=== PATIENT | male | born 1995 | race Caucasian/White ===

== ENCOUNTER 2018-06-17 17:31 | Observation (INO) | payer MEDICAID, OTHER ==
[~2018-06-17] VITALS: Ht 185.4 cm; Wt 102.5 kg
[~2018-06-17 17:31] MED LIST: SULF1TAB38 PO
[2018-06-17 18:42] LABS: BASOPHILS # (AUTO) 0.1 10^3/uL (0.0-0.1); BASOPHILS % (AUTO) 1 % (0-10); EOSINOPHILS # (AUTO) 0.1 10^3/uL (0.0-0.3); EOSINOPHILS % (AUTO) 1 % (0-10); HEMATOCRIT 46 % (40-54); HEMOGLOBIN 15.2 G/DL (13.3-17.7); LYMPHOCYTES # (AUTO) 1.9 X 10^3 (1.0-4.0); LYMPHOCYTES % (AUTO) 18 % (12-44); MEAN CORPUSCULAR HEMOGLOBIN 25 PG (25-34); MEAN CORPUSCULAR HGB CONC 33 G/DL (32-36); MEAN CORPUSCULAR VOLUME 77 FL (80-99); MONOCYTES # (AUTO) 0.7 X 10^3 (0.0-1.0); MONOCYTES % (AUTO) 7 % (0-12); NEUTROPHILS # (AUTO) 7.9 X 10^3 (1.8-7.8); NEUTROPHILS % (AUTO) 73 % (42-75); PLATELET COUNT 346 10^3/uL (130-400); RED CELL DISTRIBUTION WIDTH 14.3 % (10.0-14.5); WHITE BLOOD COUNT 10.8 10^3/uL (4.3-11.0)
[2018-06-17 18:56] LABS: ALANINE AMINOTRANSFERASE 21 U/L (0-55); ALBUMIN 4.2 GM/DL (3.2-4.5); ALKALINE PHOSPHATASE 57 U/L (40-136); BILIRUBIN,TOTAL 0.2 MG/DL (0.1-1.0); BUN/CREATININE RATIO 18; CALCIUM 8.8 MG/DL (8.5-10.1); CARBON DIOXIDE 24 MMOL/L (21-32); CHLORIDE 106 MMOL/L (98-107); CREATININE SERUM 0.95 MG/DL (0.60-1.30); GFR ESTIMATED > 60; GLUCOSE 121 MG/DL (70-105); POTASSIUM 4.3 MMOL/L (3.6-5.0); SODIUM 140 MMOL/L (135-145); TOTAL PROTEIN 6.9 GM/DL (6.4-8.2)
[2018-06-17 19:01] LABS: BILIRUBIN,URINE NEGATIVE (NEGATIVE); CLARITY,URINE CLEAR; COLOR,URINE YELLOW; GLUCOSE, URINE (UA) NEGATIVE (NEGATIVE); KETONES,URINE NEGATIVE (NEGATIVE); LEUKOCYTE ESTERASE ,URINE NEGATIVE (NEGATIVE); NITRITE,URINE NEGATIVE (NEGATIVE); PH,URINE 7 (5-9); PROTEIN,URINE NEGATIVE (NEGATIVE); UROBILINOGEN,URINE 1 MG/DL (NORMAL)
[2018-06-17 19:08] LABS: SQUAMOUS EPITHELIAL CELL,UR RARE /HPF
[2018-06-17 19:20] LABS: AMPHETAMINE SCREEN, URINE NEGATIVE (NEGATIVE); BARBITURATE SCREEN URINE NEGATIVE (NEGATIVE); BENZODIAZEPINES SCREEN URINE NEGATIVE (NEGATIVE); CANNABINOID SCREEN, URINE POSITIVE (NEGATIVE); COCAINE SCREEN URINE NEGATIVE (NEGATIVE); METHADONE STAT NEGATIVE (NEGATIVE); METHAMPHETAMINE SCREEN URINE S POSITIVE (NEGATIVE); OPIATE SCREEN URINE NEGATIVE (NEGATIVE); OXYCODONE STAT NEGATIVE (NEGATIVE); PROPOXYPHENE STAT NEGATIVE (NEGATIVE); TRICYCLIC ANTIDEPRESSANTS SCRE NEGATIVE (NEGATIVE)
--- NOTE | 2018-06-17 19:41 | ED Psychosocial ---
General Chief Complaint: Psych/Social Disorder Stated Complaint: MENTAL EVAL REQUEST Nursing Triage Note: PT AMBULATES TO ROOM 8 UNDER SUCIDE PRECAUTIONS, PT STATES TO STAFF TRIED TO HANG HIMSELF TODAY PAIR OF PANTS. NO MARKINGS NOTED ON NECK. PT CLOTHING REMOVED. PT HAS SUPERFICIAL CUT FULLER NOTED ON ARMS BILATERALLY PT STATES GOVT MAKING HIM DO THESE THINGS, PT IS VERY PARANOID. FRIEND W PT STATES SMOKES POT FREQUENTLY, BUT THINKS MAY HAVE DID METH, WHEN PT ASKED STATES DID IT A FEW DAYS AGO. PT HAS HX OF DEPRESSION. PT LOOKING AROUND ROOM, ACTING LIKE OTHER PEOPLE IN ROOM. FRIEND STATES ACTING LIKE THIS SINCE THURSDAY Source: patient, family, old records Exam Limitations: no limitations (VALERIE POWELL MD) History of Present Illness Date Seen by Provider: Jun 17, 2018 Time Seen by Provider: 18:10 Initial Comments This young man presents to emergency room with his mother and a possible suicide attempt earlier today. Reportedly the patient tried to hang himself with a pair of pants. Patient will not directly answer questions regarding this incident but his mother and another female tip out worker in the room states this to have happened. Patient reportedly took methamphetamines and trazodone on Thursday or Thursday, June 13 or . Patient will not directly answer questions about his substance use. He does appear to be psychotic. He has complained about government officials trying to tap into his phone system. Family believes symptoms started on Thursday. Patient does have a history of depression and ADHD. He had admission in 2016 for overdose. He previously was seeing [facility] at [facility] and had previously been taking Seroquel. [place] [facility] Patient also has superficial abrasions/lacerations on his upper extremities bilaterally. Patient avoids eye contact and does not want to engage with answering questions directly. He talks to himself at times and it does appear acutely psychotic. Patient is alert and oriented. There are no visible fuller on the patient's neck. When asked about how she is feeling and about his thoughts, he only states "I just want it to stop". He will not answer any other questions directly. (VALERIE POWELL MD) Allergies and Home Medications Allergies Coded Allergies: No Known Drug Allergies (Unverified , 06/18/18) Home Medications No Active Prescriptions or Reported Meds Patient Home Medication List Home Medication List Reviewed: Yes (VALERIE POWELL MD) Constitutional: no symptoms reported EENTM: no symptoms reported Respiratory: no symptoms reported Cardiovascular: no symptoms reported Gastrointestinal: no symptoms reported Genitourinary: no symptoms reported Musculoskeletal: no symptoms reported Skin: no symptoms reported Psychiatric/Neurological: See HPI (VALERIE POWELL MD) Past Jqlgtxi-Bhzpnf-Eezkrh Hx Past Med/Social Hx: Reviewed and Corrections made (VALERIE POWELL MD) Patient Social History Alcohol Use: Occasionally Uses Recreational Drug Use: Yes Drug of Choice: marijuana and methamphetamine Smoking Status: Never a Smoker Recent Foreign Travel: No Contact w/Someone Who Travel: No Recent Infectious Disease Expo: No Recent Hopitalizations: No Physical Abuse: No Sexual Abuse: No (VALERIE POWELL MD) Immunizations Up To Date Tetanus Booster (TDap): Less than 5yrs PED Vaccines UTD: Yes (VALERIE POWELL MD) Seasonal Allergies Seasonal Allergies: No (VALERIE POWELL MD) Past Medical History Surgeries: No Respiratory: No Cardiac: No Neurological: No Reproductive Disorders: No Gastrointestinal: No Musculoskeletal: No Endocrine: No HEENT: No Cancer: No Psychosocial: Yes ADD/ADHD, Depression Nursing Suicide Risk Score: 3 Nursing Suicide Risk Notes: PT TO ROOM 8. Integumentary: No Blood Disorders: No Adverse Reaction/Blood Tranf: No (VALERIE POWELL MD) Family Medical History Psychosocial problem 19 MOTHER Psychiatric Problems (bipolar disorder) (VALERIE POWELL MD) Physical Exam Vital Signs - First Documented 06/17/18 06/18/18 17:45 08:20 Temp 98.3 Pulse 123 Resp 18 B/P (MAP) 130/95 (107) Pulse Ox 97 O2 Delivery Room Air (ALONA RICHMOND) Capillary Refill : Less Than 3 Seconds (VALERIE POWELL MD) Height, Weight, BMI Height: 6'1.00" Weight: 230lbs. 0.0oz. [id number]; 32.8 BMI Method:Stated General Appearance: WD/WN, no apparent distress HEENT: PERRL/EOMI, normal ENT inspection, pharynx normal Neck: normal inspection Respiratory: lungs clear, normal breath sounds, no respiratory distress, no accessory muscle use Cardiovascular: regular rate, rhythm, no edema, no murmur Gastrointestinal: normal bowel sounds, non tender, soft Extremities: normal inspection, no pedal edema Neurologic/Psychiatric: train announcer II-XII nml as tested, no motor/sensory deficits, alert, oriented x 3, other (appears acutely psychotic) Appearance/Memory: disheveled Behavior/Eye Contact: avoids eye contact, refused to answer, threatening eye contact, other (speech sometimes pressured) Thoughts/Hallucinations: paranoid, other (possible hallucinations although patient is not directly admit to the) Skin: normal color, warm/dry (VALERIE POWELL MD) Progress/Results/Core Measures Results/Orders Lab Results Laboratory Tests Test 06/17/18 18:30 06/17/18 18:47 Range/Units White Blood Count 10.8 4.3-11.0 10^3/uL Red Blood Count 6.00 H 4.35-5.85 10^6/uL Hemoglobin 15.2 13.3-17.7 G/DL Hematocrit 46 40-54 % Mean Corpuscular Volume 77 L 80-99 FL Mean Corpuscular Hemoglobin 25 25-34 PG Mean Corpuscular Hemoglobin Concent 33 32-36 G/DL Red Cell Distribution Width 14.3 10.0-14.5 % Platelet Count 346 130-400 10^3/uL Mean Platelet Volume 10.0 7.4-10.4 FL Neutrophils (%) (Auto) 73 42-75 % Lymphocytes (%) (Auto) 18 12-44 % Monocytes (%) (Auto) 7 0-12 % Eosinophils (%) (Auto) 1 0-10 % Basophils (%) (Auto) 1 0-10 % Neutrophils # (Auto) 7.9 H 1.8-7.8 X 10^3 Lymphocytes # (Auto) 1.9 1.0-4.0 X 10^3 Monocytes # (Auto) 0.7 0.0-1.0 X 10^3 Eosinophils # (Auto) 0.1 0.0-0.3 10^3/uL Basophils # (Auto) 0.1 0.0-0.1 10^3/uL Sodium Level 140 135-145 MMOL/L Potassium Level 4.3 3.6-5.0 MMOL/L Chloride Level 106 98-107 MMOL/L Carbon Dioxide Level 24 21-32 MMOL/L Anion Gap 10 5-14 MMOL/L Blood Urea Nitrogen 17 7-18 MG/DL Creatinine 0.95 0.60-1.30 MG/DL Estimat Glomerular Filtration Rate > 60 BUN/Creatinine Ratio 18 Glucose Level 121 H 70-105 MG/DL Calcium Level 8.8 8.5-10.1 MG/DL Corrected Calcium 8.6 8.5-10.1 MG/DL Total Bilirubin 0.2 0.1-1.0 MG/DL Aspartate Amino Transf (AST/SGOT) 12 5-34 U/L Alanine Aminotransferase (ALT/SGPT) 21 0-55 U/L Alkaline Phosphatase 57 40-136 U/L Total Protein 6.9 6.4-8.2 GM/DL Albumin 4.2 3.2-4.5 GM/DL Thyroid Stimulating Hormone (TSH) 0.74 0.35-4.94 UIU/ML Serum Alcohol < 10 <10 MG/DL Urine Color YELLOW Urine Clarity CLEAR Urine pH 7 5-9 Urine Specific [place] 1.010 L 1.016-1.022 Urine Protein NEGATIVE NEGATIVE Urine Glucose (UA) NEGATIVE NEGATIVE Urine Ketones NEGATIVE NEGATIVE Urine Nitrite NEGATIVE NEGATIVE Urine Bilirubin NEGATIVE NEGATIVE Urine Urobilinogen 1 NORMAL MG/DL Urine Leukocyte Esterase NEGATIVE NEGATIVE Urine RBC (Auto) NEGATIVE NEGATIVE Urine RBC NONE /HPF Urine WBC NONE /HPF Urine Squamous Epithelial Cells RARE /HPF Urine Crystals NONE /LPF Urine Bacteria NONE /HPF Urine Casts NONE /LPF Urine Mucus NEGATIVE /LPF Urine Culture Indicated NO Urine Opiates Screen NEGATIVE NEGATIVE Urine Oxycodone Screen NEGATIVE NEGATIVE Urine Methadone Screen NEGATIVE NEGATIVE Urine Propoxyphene Screen NEGATIVE NEGATIVE Urine Barbiturates Screen NEGATIVE NEGATIVE Ur Tricyclic Antidepressants Screen NEGATIVE NEGATIVE Urine Phencyclidine Screen NEGATIVE NEGATIVE Urine Amphetamines Screen NEGATIVE NEGATIVE Urine Methamphetamines Screen POSITIVE H NEGATIVE Urine Benzodiazepines Screen NEGATIVE NEGATIVE Urine Cocaine Screen NEGATIVE NEGATIVE Urine Cannabinoids Screen POSITIVE H NEGATIVE (ALONA RICHMOND) Medications Given in ED (ALONA RICHMOND) Vital Signs/I&O 06/18/18 06/18/18 06/18/18 07:55 08:20 11:20 Temp 98.3 98.1 99.0 Pulse 123 94 89 Resp 18 22 20 B/P (MAP) 130/95 (107) 144/98 (113) 129/57 (81) Pulse Ox 97 99 96 O2 Delivery Room Air Room Air (ALONA RICHMOND) Blood Pressure Mean: 107 Progress Progress Note #1: Time: 20:36 Progress Note Patient was evaluated by the screener from [facility]. He is more open now been discussion about admission and states he is willing to be admitted. The screener and recommendation is that he be admitted for further psychiatric workup. It is still unclear if patient was using methamphetamines and marijuana because he was suicidal or if he became suicidal after the substance abuse. From the history he and the family provided, it sounds like he developed suicidal ideation last week and then started using marijuana and methamphetamines. Progress Note #2: Time: 21:46 Progress Note Patient did verify with me that he is willing and ready to accept psychiatric admission. Admission will be considered voluntary. He prefers to stay local if possible. Staff is presently working on placement. Tetanus booster was administered because of the abrasions/lacerations on the arms. Progress Note #3: Time: 22:34 Progress Note Patient had a visitor that reminded him of a friend that is . Patient became very agitated and paranoid as a result. He believes "they" are sending him of the lungs and to manipulate his mind. He is agreeable to medication by injection to help him calm down. Geodon 10 mg and Ativan 0.5 mg were ordered to be given by IM route. All visitors except for mother were asked to leave. Progress Note #4: Time: 23:08 Progress Note So far admission has been declined by [facility] in [place], [facility] [place], [facility], [facility], [facility] in [place], and [place]. [place] is admitting [place] admission for further review in the morning and will call back in the morning hours. Progress Note #5: Time: 23:22 Progress Note [facility] does not have any beds at this time but may have some discharges in the morning opening up a bed. Information has been faxed. [facility] stated they will contact us after patient's chart is reviewed. The chart is being faxed to them as well. Patient has been calm so far after receiving Geodon and Ativan. Progress Note #6: Time: 00:33 Progress Note Patient is sleeping comfortably at this time. Progress Note #7: Time: 05:37 Progress Note Patient continues to sleep comfortably. In addition to the facilities contacted above, [facility], [facility], and [facility] were contacted. None of these facilities had available beds at this time. [facility] in [place] requested information be faxed. We're still awaiting response from [facility]. (VALERIE POWELL MD) Progress Note : Time: 06:12 Progress Note Assume care of the patient at shift change. Reviewed historical notes and examination as well as examine the patient. Patient is still rather drowsy from the recent Geodon and Ativan shot but I agree with the history and examination findings as per in the chart by Dr. Feng. Patient still has suicidal ideation despite being drowsy. Psychotic features are under much better control however as he has been sleeping apparently for the past couple hours. There are multiple places that's include [place] and [facility] in [facility] that would be willing to consider the patient for admission after discharges this morning. A reasonable plan of care would be to put him on a short observation stay since his suicidal ideations with recent attempt and methamphetamine psychosis have not changed. (ALONA RICHMOND) Departure Communication (Admissions) Time/Spoke to Admitting Phy: 06:[address] Fajardo and she agrees with placing the patient on observation for social work assistant to look for inpatient psychiatric placement. Ideally she thinks that being in the ICU would be better than having video monitoring which he may not deal well with. She is willing to do the floor as well if the ICU is unavailable. (ALONA RICHMOND) Impression Primary Impression: Attempted suicide Additional Impressions: Polysubstance abuse Paranoia Disposition: ADMITTED INPATIENT Condition: Stable Admissions Decision to Admit Reason: Admit from ER (General) Decision to Admit/Date: Jun 18, 2018 Time/Decision to Admit Time: 06:50 (ALONA RICHMOND) Departure-Patient Inst. Referrals: [facility] (PCP/Family) Primary Care Physician Scripts No Active Prescriptions or Reported Meds Copy Copies To 1: JASON DIEGO JOSHUA T MD Jun 17, 2018 19:41 ALONA RICHMOND Jun 18, 2018 06:16
[2018-06-17] MEDS ORDERED: TETANUS,DIPTH,PERTUSS P/F (BOOSTRIX) 0.5 ML VIAL IM ONE (21:00)
[2018-06-17] MEDS ORDERED: WATER (STERILE) FOR INJECTION 20 ML ONE (22:40)
[2018-06-17] MEDS ORDERED: ZIPRASIDONE 20 MG INJ (GEODON) VIAL IM ONE (22:45)
[2018-06-17] MEDS ORDERED: LORazepam INJ 2 MG/ML (ATIVAN) VIAL IM ONE (22:45)
[2018-06-18 08:20] VITALS: BP 144/98
--- NOTE | 2018-06-18 08:48 | History & Physicial ([facility]) ---
HPI History of Present Illness: 22 year old male who presented to the ED yesterday with significant other and mother with paranoid delusions, suicidal thoughts, and meth abuse. He was kept in the ED overnight, and they were unable to obtain placement. The patient remained calm, but frequently expressed paranoia that "the government" was watching him and/or trying to get to him. He has no history of drug abuse according to his family/friends that were present in the ED. After being unable to secure placement overnight, the patient was moved to the floor with a telesitter while rn social work continued to work on obtaining inpatient placement. The patient is williing to go voluntarily. It is unclear as to whether the patient was using substances due to his paranoia and inability to control his thoughts - which is what his family/significant other reports, or if the pt's substance abuse has contributed to his paranoia and racing thoughts. Per review of clinic records, patient has a history of methamphetamine abuse, as well as THC abuse. Patient's clinic chart reveals that he does not have a PCP, but has been seen by behavioral health at [facility] a few times, in February and March of 2018. Review of those records indicate that pt has history of methamphetamine use since Nov 2017, daily THC use to calm himself down, previous history of abusing pills, and a suicide attempt in 2016 by overdose, after which he was hospitalized at [place] for a short time. Source: patient, family, RN/MD, RN notes reviewed, old records Exam Limitations: no limitations Date seen by provider: Jun 18, 2018 Time Seen by Provider: 13:40 Attending Physician Adela Fajadro DO [facility] Consult Date of Admission Jun 18, 2018 at 06:45 Home Medications Home Medications Reviewed patient Home Medication Reconciliation performed by pharmacy medication reconciliations surgery technician and/or nursing. Patients Allergies have been reviewed. 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[employer], overnight shift) Alcohol Use: Occasionally Uses Recreational Drug Use: Yes Drug of Choice: marijuana and methamphetamine Smoking Status: Current Everyday Smoker (smokes THC daily) 2nd Hand Smoke Exposure: Yes Recent Foreign Travel: No Contact w/other who traveled: No Recent Hopitalizations: No Recent Infectious Disease Expo: No Immunizations Up To Date Tetanus Booster (TDap): Less than 5yrs Past Medical History PMHx: Depression Anxiety ADHD - took medication in middle school per pt report Polysubstance Abuse - Meth, THC, pills in the past Suicide Attempt by overdose - 2016 with inpt stay at [place] Family Medical History Significant Family History: Psychiatric Problems (bipolar disorder) Family History: Psychosocial problem 19 MOTHER Review of Systems ([facility]) Constitutional: no symptoms reported, see HPI EENTM: no symptoms reported Respiratory: no symptoms reported Cardiovascular: no symptoms reported Gastrointestinal: no symptoms reported Genitourinary: no symptoms reported Musculoskeletal: no symptoms reported Skin: no symptoms reported Psychiatric/Neurological: See HPI, Anxiety, Depressed, Emotional Problems, Other (Paranoia) Reviewed Test Results Reviewed Test Results Lab Laboratory Tests Test 06/17/18 18:30 06/17/18 18:47 Range/Units White Blood Count 10.8 4.3-11.0 10^3/uL Red Blood Count 6.00 H 4.35-5.85 10^6/uL Hemoglobin 15.2 13.3-17.7 G/DL Hematocrit 46 40-54 % Mean Corpuscular Volume 77 L 80-99 FL Mean Corpuscular Hemoglobin 25 25-34 PG Mean Corpuscular Hemoglobin Concent 33 32-36 G/DL Red Cell Distribution Width 14.3 10.0-14.5 % Platelet Count 346 130-400 10^3/uL Mean Platelet Volume 10.0 7.4-10.4 FL Neutrophils (%) (Auto) 73 42-75 % Lymphocytes (%) (Auto) 18 12-44 % Monocytes (%) (Auto) 7 0-12 % Eosinophils (%) (Auto) 1 0-10 % Basophils (%) (Auto) 1 0-10 % Neutrophils # (Auto) 7.9 H 1.8-7.8 X 10^3 Lymphocytes # (Auto) 1.9 1.0-4.0 X 10^3 Monocytes # (Auto) 0.7 0.0-1.0 X 10^3 Eosinophils # (Auto) 0.1 0.0-0.3 10^3/uL Basophils # (Auto) 0.1 0.0-0.1 10^3/uL Sodium Level 140 135-145 MMOL/L Potassium Level 4.3 3.6-5.0 MMOL/L Chloride Level 106 98-107 MMOL/L Carbon Dioxide Level 24 21-32 MMOL/L Anion Gap 10 5-14 MMOL/L Blood Urea Nitrogen 17 7-18 MG/DL Creatinine 0.95 0.60-1.30 MG/DL Estimat Glomerular Filtration Rate > 60 BUN/Creatinine Ratio 18 Glucose Level 121 H 70-105 MG/DL Calcium Level 8.8 8.5-10.1 MG/DL Corrected Calcium 8.6 8.5-10.1 MG/DL Total Bilirubin 0.2 0.1-1.0 MG/DL Aspartate Amino Transf (AST/SGOT) 12 5-34 U/L Alanine Aminotransferase (ALT/SGPT) 21 0-55 U/L Alkaline Phosphatase 57 40-136 U/L Total Protein 6.9 6.4-8.2 GM/DL Albumin 4.2 3.2-4.5 GM/DL Thyroid Stimulating Hormone (TSH) 0.74 0.35-4.94 UIU/ML Serum Alcohol < 10 <10 MG/DL Urine Color YELLOW Urine Clarity CLEAR Urine pH 7 5-9 Urine Specific [place] 1.010 L 1.016-1.022 Urine Protein NEGATIVE NEGATIVE Urine Glucose (UA) NEGATIVE NEGATIVE Urine Ketones NEGATIVE NEGATIVE Urine Nitrite NEGATIVE NEGATIVE Urine Bilirubin NEGATIVE NEGATIVE Urine Urobilinogen 1 NORMAL MG/DL Urine Leukocyte Esterase NEGATIVE NEGATIVE Urine RBC (Auto) NEGATIVE NEGATIVE Urine RBC NONE /HPF Urine WBC NONE /HPF Urine Squamous Epithelial Cells RARE /HPF Urine Crystals NONE /LPF Urine Bacteria NONE /HPF Urine Casts NONE /LPF Urine Mucus NEGATIVE /LPF Urine Culture Indicated NO Urine Opiates Screen NEGATIVE NEGATIVE Urine Oxycodone Screen NEGATIVE NEGATIVE Urine Methadone Screen NEGATIVE NEGATIVE Urine Propoxyphene Screen NEGATIVE NEGATIVE Urine Barbiturates Screen NEGATIVE NEGATIVE Ur Tricyclic Antidepressants Screen NEGATIVE NEGATIVE Urine Phencyclidine Screen NEGATIVE NEGATIVE Urine Amphetamines Screen NEGATIVE NEGATIVE Urine Methamphetamines Screen POSITIVE H NEGATIVE Urine Benzodiazepines Screen NEGATIVE NEGATIVE Urine Cocaine Screen NEGATIVE NEGATIVE Urine Cannabinoids Screen POSITIVE H NEGATIVE Physical Exam-([facility]) Physical Exam Vital Signs Capillary Refill : Less Than 3 Seconds General Appearance: WD/WN, other (paranoid) Eyes: Bilateral Eye Normal Inspection, Bilateral Eye EOMI HEENT: normal ENT inspection Neck: non-tender, full range of motion, supple, normal inspection Respiratory: chest non-tender, lungs clear, normal breath sounds, no respiratory distress, no accessory muscle use Cardiovascular: regular rate, rhythm, no edema, no gallop, no murmur Gastrointestinal: normal bowel sounds, non tender, soft, no organomegaly, no pulsatile mass Back: normal inspection, no CVA tenderness, no vertebral tenderness Extremities: normal range of motion, non-tender, normal inspection, no pedal edema, no calf tenderness, normal capillary refill Neurologic/Psychiatric: hand candy cutter II-XII nml as tested, no motor/sensory deficits, alert, oriented x 3, other (paranoid, anxious appearing) Skin: normal color, warm/dry Assessment/Plan Assessment/Plan Admission Dx Paranoia Suicidal Ideation Polysubstance Abuse Depression Anxiety Admission Status: Observation Assessment & Plan Paranoia Suicidal Ideation Polysubstance Abuse Depression Anxiety Patient calm and cooperative, but obviously paranoid at the time of exam. He is anxious and reports that his thoughts are "racing" but he denies auditory or visual hallucinations. Patient has taina accepted for inpatient treatment at [facility]. He is medically stable From conversing with the patient, it is immediately clear that his meth use prior to admission was not a single event, as the review of clinic records reviewed. Patient spoke about various different things to think about when purchasing meth for use, who you get it from, what it is mixed with, what kind of quality it is, etc. Patient is medically stable and has been cooperative throughout his stay; he continues to confirm he has suicidal ideation and desires inpatient admission. He will be discharged from this facility and transported by private vehicle to [facility] by his mother and significant other. We will give him 2 mg ativan PO and 25 mg Seroquel PO prior to discharge to help him relax, as he is feeling anxious about the car ride. He has taken seroquel in the past and reports that he did okay on it, but was taking 100 mg and it made him very tired. PLAN: DISCHARGE, transport by private vehicle to [facility] CONDITION: STABLE Copy Copies To 1: [facility]ADELA DUPONT DO Jun 18, 2018 08:48
[2018-06-18] MEDS ORDERED: ZIPRASIDONE 20 MG INJ (GEODON) VIAL IM PRN (09:30)
[2018-06-18] MEDS ORDERED: LORazepam INJ 2 MG/ML (ATIVAN) VIAL IVP PRN (09:30)
[2018-06-18 11:20] VITALS: BP 129/57
[2018-06-18] MEDS ORDERED: QUEtiapine 25 MG (SEROquel) TAB IMMEDIATE RELEASE PO NR (14:15)
[2018-06-18] MEDS ORDERED: LORazepam 1 MG (ATIVAN) TAB PO NR (14:15)
--- NOTE | 2018-06-18 14:17 | Discharge Summary ---
Diagnosis/Chief Complaint Date of Admission Jun 18, 2018 at 06:45 Date of Discharge 06/18/18 Admission Diagnosis Admission Diagnosis Paranoia Suicidal Ideation Polysubstance Abuse Depression Anxiety Discharge Diagnosis Paranoia Suicidal Ideation Polysubstance Abuse Depression Anxiety Patient calm and cooperative, but obviously paranoid at the time of exam. He is anxious and reports that his thoughts are "racing" but he denies auditory or visual hallucinations. Patient has taina accepted for inpatient treatment at [facility]. He is medically stable From conversing with the patient, it is immediately clear that his meth use prior to admission was not a single event, as the review of clinic records reviewed. Patient spoke about various different things to think about when purchasing meth for use, who you get it from, what it is mixed with, what kind of quality it is, etc. Patient is medically stable and has been cooperative throughout his stay; he continues to confirm he has suicidal ideation and desires inpatient admission. He will be discharged from this facility and transported by private vehicle to [facility] by his mother and significant other. We will give him 2 mg ativan PO and 25 mg Seroquel PO prior to discharge to help him relax, as he is feeling anxious about the car ride. He has taken seroquel in the past and reports that he did okay on it, but was taking 100 mg and it made him very tired. PLAN: DISCHARGE, transport by private vehicle to [facility] CONDITION: STABLE Chief Complaint/HPI Chief Complaint/HPI 22 year old male who presented to the ED yesterday with significant other and mother with paranoid delusions, suicidal thoughts, and meth abuse. He was kept in the ED overnight, and they were unable to obtain placement. The patient remained calm, but frequently expressed paranoia that "the government" was watching him and/or trying to get to him. He has no history of drug abuse according to his family/friends that were present in the ED. After being unable to secure placement overnight, the patient was moved to the floor with a telesitter while geriatric social worker continued to work on obtaining inpatient placement. The patient is williing to go voluntarily. It is unclear as to whether the patient was using substances due to his paranoia and inability to control his thoughts - which is what his family/significant other reports, or if the pt's substance abuse has contributed to his paranoia and racing thoughts. Per review of clinic records, patient has a history of methamphetamine abuse, as well as THC abuse. Patient's clinic chart reveals that he does not have a PCP, but has been seen by behavioral health at [facility] a few times, in February and March of 2018. Review of those records indicate that pt has history of methamphetamine use since Nov 2017, daily THC use to calm himself down, previous history of abusing pills, and a suicide attempt in 2016 by overdose, after which he was hospitalized at [facility] for a short time. Discharge Summary-OBS Procedures None. Consultations Discharge Physical Examination Allergies: Coded Allergies: No Known Drug Allergies (Unverified , 06/18/18) Vitals & I&Os Vital Sign - Last 12Hours Date Time Temp Pulse Resp B/P (MAP) Pulse Ox O2 Delivery O2 Flow Rate FiO2 06/18/18 11:20 99.0 89 20 129/57 (81) 96 Room Air Hospital Course see final discharge diagnosis Labs Laboratory Tests 06/17/18 18:30: White Blood Count 10.8, Red Blood Count 6.00H, Hemoglobin 15.2, Hematocrit 46, Mean Corpuscular Volume 77L, Mean Corpuscular Hemoglobin 25, Mean Corpuscular Hemoglobin Concent 33, Red Cell Distribution Width 14.3, Platelet Count 346, Mean Platelet Volume 10.0, Neutrophils (%) (Auto) 73, Lymphocytes (%) (Auto) 18 , Monocytes (%) (Auto) 7, Eosinophils (%) (Auto) 1, Basophils (%) (Auto) 1, Neutrophils # (Auto) 7.9H, Lymphocytes # (Auto) 1.9, Monocytes # (Auto) 0.7, Eosinophils # (Auto) 0.1, Basophils # (Auto) 0.1, Sodium Level 140, Potassium Level 4.3, Chloride Level 106, Carbon Dioxide Level 24, Anion Gap 10, Blood Urea Nitrogen 17, Creatinine 0.95, Estimat Glomerular Filtration Rate > 60, BUN/ Creatinine Ratio 18, Glucose Level 121H, Calcium Level 8.8, Corrected Calcium 8.6, Total Bilirubin 0.2, Aspartate Amino Transf (AST/SGOT) 12, Alanine Aminotransferase (ALT/SGPT) 21, Alkaline Phosphatase 57, Total Protein 6.9, Albumin 4.2, Thyroid Stimulating Hormone (TSH) 0.74, Serum Alcohol < 10 8/9/18 18:47: Urine Color YELLOW, Urine Clarity CLEAR, Urine pH 7, Urine Specific [place] 1.010L, Urine Protein NEGATIVE, Urine Glucose (UA) NEGATIVE, Urine Ketones NEGATIVE, Urine Nitrite NEGATIVE, Urine Bilirubin NEGATIVE, Urine Urobilinogen 1 , Urine Leukocyte Esterase NEGATIVE, Urine RBC (Auto) NEGATIVE, Urine RBC NONE, Urine WBC NONE, Urine Squamous Epithelial Cells RARE, Urine Crystals NONE, Urine Bacteria NONE, Urine Casts NONE, Urine Mucus NEGATIVE, Urine Culture Indicated NO, Urine Opiates Screen NEGATIVE, Urine Oxycodone Screen NEGATIVE, Urine Methadone Screen NEGATIVE, Urine Propoxyphene Screen NEGATIVE, Urine Barbiturates Screen NEGATIVE, Ur Tricyclic Antidepressants Screen NEGATIVE, Urine Phencyclidine Screen NEGATIVE, Urine Amphetamines Screen NEGATIVE, Urine Methamphetamines Screen POSITIVEH, Urine Benzodiazepines Screen NEGATIVE, Urine Cocaine Screen NEGATIVE, Urine Cannabinoids Screen POSITIVEH Discharge Condition at discharge medically stable, transfer by private vehicle to [facility] for inpatient psychiatric treatment Instructions to patient/family Please see electronic discharge instructions given to patient. Discharge Medications Reviewed and agree with Discharge Medication list on patient's Discharge Instruction sheet Clinical Quality Measures DVT/VTE Risk/Contraindication: Risk Factor Score Per Nursin RFS Level Per Nursing on Admit: 1=Low/No VTE PPX Copy Copies To 1: [facility] DO Jun 18, 2018 14:17
== END 2018-06-18 14:20 ==
LOC: EDUNIT# 17:31 → ER 17:32 → 4TH 17:33 → UNDOADMOB 06-18 06:45 → 4TH 06-18 06:45 → UNDODISOB 06-18 15:20
PROVIDERS: ADMIT Family Medicine; ATTEND Family Medicine
DX: F22 Delusional disorders (principal); R45.851 Suicidal ideations; F15.10 Other stimulant abuse, uncomplicated; F12.90 Cannabis use, unspecified, uncomplicated; F32.9 Major depressive disorder, single episode, unspecified; F41.9 Anxiety disorder, unspecified
CPT/HCPCS: 36415; 80053; 80306; 80320; 81000; 84443; 85025; 90471; 90715; 96372; 99211; G0378

== ENCOUNTER 2019-08-02 12:30 | Emergency (ER) | payer OTHER ==
[~2019-08-02] VITALS: Ht 187 cm; Wt 127.0 kg
[2019-08-02] MEDS ORDERED: ZIPRASIDONE 20 MG INJ (GEODON) VIAL IM ONE ×2 (12:34→12:45)
[2019-08-02] MEDS ORDERED: WATER (STERILE) FOR INJECTION 10 ML ONE (12:35)
--- NOTE | 2019-08-02 12:42 | NUR ---
PT STATES HE HAS NOT INTENTIONS OF HARMING HIMSELF AT THIS TIME.
--- NOTE | 2019-08-02 12:45 | ED Psychosocial ---
General Chief Complaint: Psych/Social Disorder Stated Complaint: PSYCH EVAL Nursing Triage Note: ARRIVED VIA EMS FROM ROAD. WENT TO [facility] LOOKING FOR HELP AND LEFT AMA. FOUND WONDERING IN THE STREET. PT NOW STATES HE IS WANTING A MENTAL EVALUATION. Source: patient Exam Limitations: no limitations History of Present Illness Date Seen by Provider: Aug 02, 2019 Time Seen by Provider: 12:43 Initial Comments To ER per EMS from [facility] with reports of needing mental health help. He went there this morning voluntarily because he wanted a mental evalua tion because "nothing seems real". Denies depression or anxiety, use methamphetamine last week, states it was a "bad batch". Denies any diagnosed history of mental illnesses, takes no medication. While at [facility] he ran out of the building and seemed to be agitated, police were called, 911 was called and EMS transported him here. No homicidal or suicidal ideations. States he believes we're watching him thru the TV. Timing/Duration: constant Severity: moderate Associated Symptoms: impaired concentration Allergies and Home Medications Allergies Coded Allergies: No Known Drug Allergies (Unverified , 06/18/18) Home Medications Olanzapine 10 Mg Tab.rapdis, 10 MG PO DAILY Prescribed by: ASHLYN WINN on 08/02/19 1442 Patient Home Medication List Home Medication List Reviewed: Yes Review of Systems Constitutional: see HPI EENTM: see HPI Respiratory: no symptoms reported Cardiovascular: no symptoms reported Genitourinary: no symptoms reported Musculoskeletal: no symptoms reported Skin: see HPI Past Hhuaqne-Ojsuqp-Iuggac Hx Patient Social History Alcohol Use: Occasionally Uses Alcohol Beverage of Choice: Whiskey, [place], Vodka Recreational Drug Use: Yes (METH, POT) Drug of Choice: marijuana and methamphetamine Smoking Status: Current Everyday Smoker Type Used: Cigars, Cigarettes 2nd Hand Smoke Exposure: Yes Recent Foreign Travel: No Contact w/Someone Who Travel: No Recent Infectious Disease Expo: No Recent Hopitalizations: No Immunizations Up To Date Tetanus Booster (TDap): Less than 5yrs PED Vaccines UTD: Yes Seasonal Allergies Seasonal Allergies: No Past Medical History Surgeries: No Respiratory: No Cardiac: No Neurological: No Reproductive Disorders: No Genitourinary: No Gastrointestinal: No Musculoskeletal: No Endocrine: No HEENT: No Cancer: No Did You Recieve Any Treatments: No Psychosocial: Yes ADD/ADHD, Anxiety, Suicide Attempts, Bipolar, Depression Integumentary: No Blood Disorders: No Adverse Reaction/Blood Tranf: No Family Medical History Diabetes mellitus 19 FATHER Psychosocial problem 19 MOTHER (ANXIETY DEPRESSION BIPOLAR) Psychiatric Problems Physical Exam Vital Signs - First Documented 08/02/19 12:36 Temp 36.0 Pulse 73 Resp 16 Pulse Ox 98 O2 Delivery Room Air Capillary Refill : Less Than 3 Seconds Height, Weight, BMI Height: 6'1.00" Weight: 226lbs. 1.0oz. 102.395844pg; 36.00 BMI Method:Stated General Appearance: WD/WN, no apparent distress HEENT: PERRL/EOMI, normal ENT inspection Respiratory: no respiratory distress, no accessory muscle use Gastrointestinal: non tender, soft Neurologic/Psychiatric: alert, normal mood/affect, oriented x 3 Appearance/Memory: disheveled, impaired insight, impaired recent memory, impaired remote memory Behavior/Eye Contact: avoids eye contact, refused to answer Thoughts/Hallucinations: no apparent hallucination, paranoid Skin: normal color, warm/dry Progress/Results/Core Measures Results/Orders Lab Results Laboratory Tests Test 08/02/19 13:10 Range/Units White Blood Count 9.2 4.3-11.0 10^3/uL Red Blood Count 6.09 H 4.35-5.85 10^6/uL Hemoglobin 14.9 13.3-17.7 G/DL Hematocrit 46 40-54 % Mean Corpuscular Volume 75 L 80-99 FL Mean Corpuscular Hemoglobin 24 L 25-34 PG Mean Corpuscular Hemoglobin Concent 33 32-36 G/DL Red Cell Distribution Width 14.5 10.0-14.5 % Platelet Count 338 130-400 10^3/uL Mean Platelet Volume 10.2 7.4-10.4 FL Neutrophils (%) (Auto) 74 42-75 % Lymphocytes (%) (Auto) 20 12-44 % Monocytes (%) (Auto) 4 0-12 % Eosinophils (%) (Auto) 1 0-10 % Basophils (%) (Auto) 0 0-10 % Neutrophils # (Auto) 6.9 1.8-7.8 X 10^3 Lymphocytes # (Auto) 1.9 1.0-4.0 X 10^3 Monocytes # (Auto) 0.4 0.0-1.0 X 10^3 Eosinophils # (Auto) 0.1 0.0-0.3 10^3/uL Basophils # (Auto) 0.0 0.0-0.1 10^3/uL Urine Color YELLOW Urine Clarity CLEAR Urine pH 6 5-9 Urine Specific [place] 1.015 L 1.016-1.022 Urine Protein NEGATIVE NEGATIVE Urine Glucose (UA) NEGATIVE NEGATIVE Urine Ketones NEGATIVE NEGATIVE Urine Nitrite NEGATIVE NEGATIVE Urine Bilirubin NEGATIVE NEGATIVE Urine Urobilinogen NORMAL NORMAL MG/DL Urine Leukocyte Esterase NEGATIVE NEGATIVE Urine RBC (Auto) NEGATIVE NEGATIVE Urine RBC NONE /HPF Urine WBC NONE /HPF Urine Squamous Epithelial Cells RARE /HPF Urine Crystals NONE /LPF Urine Bacteria NEGATIVE /HPF Urine Casts NONE /LPF Urine Mucus NEGATIVE /LPF Urine Culture Indicated NO Sodium Level 141 135-145 MMOL/L Potassium Level 3.8 3.6-5.0 MMOL/L Chloride Level 107 98-107 MMOL/L Carbon Dioxide Level 26 21-32 MMOL/L Anion Gap 8 5-14 MMOL/L Blood Urea Nitrogen 6 L 7-18 MG/DL Creatinine 0.73 0.60-1.30 MG/DL Estimat Glomerular Filtration Rate > 60 BUN/Creatinine Ratio 8 Glucose Level 88 70-105 MG/DL Calcium Level 9.5 8.5-10.1 MG/DL Corrected Calcium 9.2 8.5-10.1 MG/DL Total Bilirubin 0.4 0.1-1.0 MG/DL Aspartate Amino Transf (AST/SGOT) 17 5-34 U/L Alanine Aminotransferase (ALT/SGPT) 35 0-55 U/L Alkaline Phosphatase 85 40-136 U/L Total Protein 7.2 6.4-8.2 GM/DL Albumin 4.4 3.2-4.5 GM/DL Urine Opiates Screen NEGATIVE NEGATIVE Urine Oxycodone Screen NEGATIVE NEGATIVE Urine Methadone Screen NEGATIVE NEGATIVE Urine Propoxyphene Screen NEGATIVE NEGATIVE Urine Barbiturates Screen NEGATIVE NEGATIVE Ur Tricyclic Antidepressants Screen NEGATIVE NEGATIVE Urine Phencyclidine Screen NEGATIVE NEGATIVE Urine Amphetamines Screen NEGATIVE NEGATIVE Urine Methamphetamines Screen NEGATIVE NEGATIVE Urine Benzodiazepines Screen NEGATIVE NEGATIVE Urine Cocaine Screen NEGATIVE NEGATIVE Urine Cannabinoids Screen NEGATIVE NEGATIVE Serum Alcohol < 10 <10 MG/DL My Orders Orders - ASHLYN WINN PAINT PROCESS ENGINEER Cbc With Automated Diff (08/02/19 12:40) Comprehensive Metabolic Panel (08/02/19 12:40) Ua Culture If Indicated (08/02/19 12:40) Ed Iv/Invasive Line Start (08/02/19 12:40) Drug Screen Stat (Urine) (08/02/19 12:40) Ziprasidone Injection (Geodon Injection) (08/02/19 12:45) Alcohol (08/02/19 14:17) Medications Given in ED Current Medications Medications Dose Ordered Sig/Unruly Route Start Time Stop Time Status Last Admin Dose Admin Ziprasidone 10 mg ONCE ONCE IM 08/02/19 12:45 08/02/19 12:46 DC 08/02/19 12:39 10 MG Vital Signs/I&O 08/02/19 12:36 Temp 36.0 Pulse 73 Resp 16 B/P (MAP) Pulse Ox 98 O2 Delivery Room Air Departure Communication (Admissions) Patient is now sleeping, arousable to verbal stimuli. Spoke with Aleksandra from [facility], doesn't feel he needs screen since he is not suicidal or homicidal. Spoke with [facility] who feels that should be admitted inpatient for medication stabilization. I called [facility] neither of which have any psychiatric beds available. He still denies suicidal or homicidal thoughts. I'll start him on an antipsychotic arrange close outpatient follow-up Impression Primary Impression: Paranoia Disposition: 01 HOME, SELF-CARE Condition: Improved Departure-Patient Inst. Decision time for Depature: 14:30 Referrals: [facility] (PCP/Family) Primary Care Physician Patient Instructions: NO INSTRUCTIONS GIVEN Scripts Olanzapine (Zyprexa Zydis) 10 Mg Tab.rapdis 10 MG PO DAILY, #14 TAB Prov: ASHLYN WINN APRN 08/02/19 ASHLYN WINN APRN Aug 02, 2019 12:45
[2019-08-02 13:19] LABS: BASOPHILS % (AUTO) 0 % (0-10); BILIRUBIN,URINE NEGATIVE (NEGATIVE); CLARITY,URINE CLEAR; COLOR,URINE YELLOW; EOSINOPHILS # (AUTO) 0.1 10^3/uL (0.0-0.3); EOSINOPHILS % (AUTO) 1 % (0-10); GLUCOSE, URINE (UA) NEGATIVE (NEGATIVE); HEMATOCRIT 46 % (40-54); HEMOGLOBIN 14.9 G/DL (13.3-17.7); KETONES,URINE NEGATIVE (NEGATIVE); LEUKOCYTE ESTERASE ,URINE NEGATIVE (NEGATIVE); LYMPHOCYTES # (AUTO) 1.9 X 10^3 (1.0-4.0); LYMPHOCYTES % (AUTO) 20 % (12-44); MEAN CORPUSCULAR HEMOGLOBIN 24 PG (25-34); MEAN CORPUSCULAR HGB CONC 33 G/DL (32-36); MEAN CORPUSCULAR VOLUME 75 FL (80-99); MEAN PLATELET VOLUME 10.2 FL (7.4-10.4); MONOCYTES # (AUTO) 0.4 X 10^3 (0.0-1.0); MONOCYTES % (AUTO) 4 % (0-12); NEUTROPHILS # (AUTO) 6.9 X 10^3 (1.8-7.8); NEUTROPHILS % (AUTO) 74 % (42-75); NITRITE,URINE NEGATIVE (NEGATIVE); PH,URINE 6 (5-9); PLATELET COUNT 338 10^3/uL (130-400); PROTEIN,URINE NEGATIVE (NEGATIVE); RED CELL DISTRIBUTION WIDTH 14.5 % (10.0-14.5); UROBILINOGEN,URINE NORMAL (NORMAL); WHITE BLOOD COUNT 9.2 10^3/uL (4.3-11.0)
[2019-08-02 13:27] LABS: BACTERIA,URINE NEGATIVE /HPF; SQUAMOUS EPITHELIAL CELL,UR RARE /HPF
[2019-08-02 13:34] LABS: AMPHETAMINE SCREEN, URINE NEGATIVE (NEGATIVE); BARBITURATE SCREEN URINE NEGATIVE (NEGATIVE); BENZODIAZEPINES SCREEN URINE NEGATIVE (NEGATIVE); CANNABINOID SCREEN, URINE NEGATIVE (NEGATIVE); COCAINE SCREEN URINE NEGATIVE (NEGATIVE); METHADONE STAT NEGATIVE (NEGATIVE); METHAMPHETAMINE SCREEN URINE S NEGATIVE (NEGATIVE); OPIATE SCREEN URINE NEGATIVE (NEGATIVE); OXYCODONE STAT NEGATIVE (NEGATIVE); PROPOXYPHENE STAT NEGATIVE (NEGATIVE); TRICYCLIC ANTIDEPRESSANTS SCRE NEGATIVE (NEGATIVE)
[2019-08-02 13:37] LABS: ALANINE AMINOTRANSFERASE 35 U/L (0-55); ALBUMIN 4.4 GM/DL (3.2-4.5); ALKALINE PHOSPHATASE 85 U/L (40-136); BILIRUBIN,TOTAL 0.4 MG/DL (0.1-1.0); BUN/CREATININE RATIO 8; CALCIUM 9.5 MG/DL (8.5-10.1); CARBON DIOXIDE 26 MMOL/L (21-32); CHLORIDE 107 MMOL/L (98-107); CREATININE SERUM 0.73 MG/DL (0.60-1.30); GFR ESTIMATED > 60; GLUCOSE 88 MG/DL (70-105); POTASSIUM 3.8 MMOL/L (3.6-5.0); SODIUM 141 MMOL/L (135-145); TOTAL PROTEIN 7.2 GM/DL (6.4-8.2)
[2019-08-02] MEDS ORDERED: OLAN10TA4 PO (14:42)
[2019-08-02 15:26] VITALS: BP 170/50
--- NOTE | 2019-08-02 15:27 | NUR ---
THE PT RAN OUT OF THE DPT WITHOUT SAYING GOOD BY.
== END 2019-08-02 15:26 | disposition home or self-care (01) ==
LOC: EDUNIT# 12:30 → ER 12:31
DX: F22 Delusional disorders (principal); F17.210 Nicotine dependence, cigarettes, uncomplicated; F17.290 Nicotine dependence, other tobacco product, uncomplicated; F90.9 Attention-deficit hyperactivity disorder, unspecified type; F41.9 Anxiety disorder, unspecified; F31.9 Bipolar disorder, unspecified; Z91.5 Personal history of self-harm
CPT/HCPCS: 36415; 80053; 80306; 80320; 81000; 85025; 96372; 99284

== ENCOUNTER 2022-06-28 11:50 | Emergency (ER) | payer OTHER ==
[~2022-06-28] VITALS: Ht 187 cm; Wt 163.0 kg
[~2022-06-28 11:50] MED LIST changes: +OLAN10TA4 PO
--- NOTE | 2022-06-28 12:05 | ED Cough/URI ---
General Chief Complaint: Psych/Social Disorder Stated Complaint: COUGH - SORE THROAT - FATIGUE - [place]GE[place]ON Source: patient Exam Limitations: no limitations History of Present Illness Date Seen by Provider: Jun 28, 2022 Time Seen by Provider: 12:01 Initial Comments This is a 26-year-old male that presents to the emergency room for evaluation of cough, sore throat, fatigue and congestion. When I entered the room to interview the patient stated that he did not feel well but that he did not really want to be here. I explained to him the he did not have to be here but that if he would like treatment I am happy to help. The patient told me that he was going to take his bag of chips and leave and he proceeded to walk out of the department. On his way out he did ask if I provide him a doctor's note I told him that we would need to do an evaluation on him before providing a work note. The patient then left out in the lobby and apparently changed his mind and decided to come back and for evaluation. He states that his symptoms have been going on for couple days and that he really just does not want to get fired from his job. Severity/Quality: mild Prior Episodes/Possible Cause: no prior episodes Associated Symptoms: cough Allergies and Home Medications Allergies Coded Allergies: No Known Drug Allergies (Unverified , 06/18/18) Patient Home Medication List Home Medication List Reviewed: Yes Olanzapine (Zyprexa Zydis) 10 Mg Tab.rapdis, 10 MG PO DAILY Prescribed by: ASHLYN WINN on 08/02/19 1442 Review of Systems Review of Systems Constitutional: malaise EENTM: nose congestion Respiratory: cough Cardiovascular: no symptoms reported Gastrointestinal: no symptoms reported Genitourinary: no symptoms reported Musculoskeletal: no symptoms reported Skin: no symptoms reported Psychiatric/Neurological: Anxiety Past Xioubbt-Azhezm-Wmfiiu Hx Immunizations Up To Date Tetanus Booster (TDap): Less than 5yrs PED Vaccines UTD: Yes Seasonal Allergies Seasonal Allergies: No Past Medical History Surgeries: No Respiratory: No Cardiac: No Neurological: No Reproductive Disorders: No Genitourinary: No Gastrointestinal: No Musculoskeletal: No Endocrine: No HEENT: No Cancer: No Did You Recieve Any Treatments: No Psychosocial: Yes ADD/ADHD, Anxiety, Suicide Attempts, Bipolar, Depression Integumentary: No Blood Disorders: No Adverse Reaction/Blood Tranf: No Family Medical History Diabetes mellitus 19 FATHER Psychosocial problem 19 MOTHER (ANXIETY DEPRESSION BIPOLAR) Psychiatric Problems Physical Exam Vital Signs - First Documented 06/28/22 11:55 Temp 36.5 Pulse 121 Resp 20 B/P (MAP) 148/105 (119) Pulse Ox 96 O2 Delivery Room Air Capillary Refill : Height: 6'1.00" Weight: 226lbs. 1.0oz. 102.524521po; 36.00 BMI Method:Stated General Appearance: WD/WN, no apparent distress HEENT: PERRL/EOMI, normal ENT inspection Neck: non-tender, full range of motion Respiratory: chest non-tender, lungs clear, normal breath sounds Cardiovascular: regular rate, rhythm Gastrointestinal: normal bowel sounds Extremities: normal range of motion, non-tender Neurologic/Psychiatric: global supply chain director II-XII nml as tested, alert, oriented x 3 Skin: normal color, warm/dry Progress/Results/Core Measures Suspected Sepsis SIRS Temperature: Pulse: Respiratory Rate: Blood Pressure / Mean: Results/Orders Vital Signs/I&O 06/28/22 11:55 Temp 36.5 Pulse 121 Resp 20 B/P (MAP) 148/105 (119) Pulse Ox 96 O2 Delivery Room Air Capillary Refill : Departure Communication (Admissions) Patient is afebrile, non-toxic and in no distress. We will treat symptomatically. No evidence or suspicion of pneumonia, respiratory distress, sepsis Impression Primary Impression: Upper respiratory infection Additional Impression: Methamphetamine abuse Disposition: 01 HOME, SELF-CARE Condition: Stable Departure-Patient Inst. Decision time for Depature: 12:23 Referrals: [facility] (PCP/Family) Primary Care Physician Patient Instructions: Viral Syndrome (DC) Scripts Promethazine HCl (Promethazine Tablet) 25 Mg Tablet 25 MG PO Q6H PRN for NAUSEA/VOMITING for 7 Days, #14 TAB Prov: CARLA JACOBS 06/28/22 Albuterol Sulfate (PROAIR HFA) 1 Puff Puff 2 PUFF IH Q4H for Cough for 7 Days, #1 EA 1 PUFF = 90 MCG Prov: CARLA JACOBS 06/28/22 Work/School Note: Work Release Form Date Seen in the Emergency Department: Jun 28, 2022 Return to Work: Jun 30, 2022 CARLA JACOBS Jun 28, 2022 12:05
[2022-06-28] MEDS ORDERED: PROM25TA14 PO (12:26)
[2022-06-28] MEDS ORDERED: RT-ALBUINH IH (12:26)
[2022-06-28 12:31] VITALS: BP 148/105
== END 2022-06-28 12:31 | disposition home or self-care (01) ==
LOC: EDUNIT# 11:50 → ER 11:52
DX: J06.9 Acute upper respiratory infection, unspecified (principal); F15.10 Other stimulant abuse, uncomplicated; Z20.822 Contact with and (suspected) exposure to COVID-19; Z28.310 Unvaccinated for COVID-19
CPT/HCPCS: 87636; 99283

== ENCOUNTER 2022-07-05 18:02 | Emergency (ER) | payer OTHER ==
[~2022-07-05] VITALS: Ht 182.8 cm; Wt 165.0 kg
[~2022-07-05 18:02] MED LIST changes: +PROM25TA14 PO; +RT-ALBUINH IH
[2022-07-05 18:13] VITALS: BP 150/108
--- NOTE | 2022-07-05 18:56 | ED Abdominal Pain ---
General Chief Complaint: Abdominal/GI Problems Stated Complaint: ABD PAIN/VOMITING Nursing Triage Note: Pt states that he has had stomach pain, n/v and bowel issues for 2 months. He is sweating, but states that that is normal for him. Has an appt to establish with a PCP in July, only see Lucio Reyes at [facility] currently. Source of Information: Patient Exam Limitations: No Limitations History of Present Illness Date Seen by Provider: Jul 05, 2022 Time Seen by Provider: 18:31 Initial Comments Patient to the ER by private conveyance chief complaint of pain above the umbilicus and epigastric region going off and on for the past 2 months. Some dull achy background pain with some intermittent sharp pains. He has vomited once today. He is diaphoretic. He rates his pain as 6 out of 10 but denies any nausea presently. He has no abdominal surgeries. Last bowel movement was yesterday morning, last oral intake was this morning. The patient was here a week ago and had a brief evaluation at that time he said he was feeling a Panic attack and had to leave so lab work or imaging was set up at that time. He endorses using marijuana for control of his nausea and depression. He says [facility] is his primary care and they have given him Zofran for his nausea which she said did nothing. He tried Nexium [id number] without relief of pain. He has a family history of gallbladder disease. A distant history of methamphetamine use noted. Patient says he has problems with his bowels for a long time with diarrhea alternating with constipation and has been told in the past that he might have irritable bowel syndrome. Allergies and Home Medications Allergies Coded Allergies: No Known Drug Allergies (Unverified , 06/18/18) Patient Home Medication List Home Medication List Reviewed: Yes Albuterol Sulfate (Proair Hfa) 1 Puff Puff, 2 PUFF IH Q4H Prescribed by: Silver Wilson on 06/28/22 1226 Olanzapine (Zyprexa Zydis) 10 Mg Tab.rapdis, 10 MG PO DAILY Prescribed by: ASHLYN WINN on 08/02/19 1442 Ondansetron (Ondansetron Odt) 4 Mg Tab.rapdis, 4-8 MG PO Q6H PRN for NAUSEA/VOMITING Prescribed by: ALONA RICHMOND on 07/05/22 2213 Promethazine HCl (Promethazine Tablet) 25 Mg Tablet, 25 MG PO Q6H PRN for NAUSEA/VOMITING Prescribed by: Silver Wilson on 06/28/22 1226 Promethazine HCl (Promethazine Tablet) 25 Mg Tablet, 25 MG PO Q6H PRN for NAUSEA/VOMITING Prescribed by: ALONA RICHMOND on 07/05/222212 Review of Systems Review of Systems Constitutional: see HPI; No chills; diaphoresis EENTM: No Blurred Vision, No Double Vision Respiratory: Denies Cough, Denies Orthopnea Cardiovascular: Denies Chest Pain, Denies Lightheadedness Gastrointestinal: Denies Abdomen Distended; Abdominal Pain, Constipated, Diarrhea, Nausea, Poor Fluid Intake, Vomiting Genitourinary: Denies Burning, Denies Discharge Musculoskeletal: No back pain, No joint pain Psychiatric/Neurological: Denies Anxiety, Denies Depressed All Other Systems Reviewed Negative Unless Noted: Yes Past Fldgpfs-Ptzsov-Yswqis Hx Patient Social History Tobacco Use?: Yes Tobacco type used: Cigarettes Smoking Status: Current Someday Smoker Use of E-Cig and/or Vaping dev: Yes E-Cig or Vaping type used: Nicotine Use of E-Cig and/or Vaping Nate: Current Everyday User Substance use?: Yes Substance type: Marijuana Substance frequency: Couple times a week Alcohol Use?: Yes Alcohol type: Beer Alcohol Frequency: Rarely Pt feels they are or have been: No Immunizations Up To Date Tetanus Booster (TDap): Less than 5yrs PED Vaccines UTD: Yes Seasonal Allergies Seasonal Allergies: No Past Medical History Surgery/Hospitalization HX: "schizo-effictive" Surgeries: No Respiratory: No Cardiac: No Neurological: No Reproductive Disorders: No Genitourinary: No Gastrointestinal: No Musculoskeletal: No Endocrine: No HEENT: No Cancer: No Did You Recieve Any Treatments: No Psychosocial: Yes ADD/ADHD, Anxiety, Suicide Attempts, Bipolar, Depression Integumentary: No Blood Disorders: No Adverse Reaction/Blood Tranf: No Family Medical History Diabetes mellitus 19 FATHER Psychosocial problem 19 MOTHER (ANXIETY DEPRESSION BIPOLAR) Psychiatric Problems Physical Exam Vital Signs Vital Signs - First Documented 07/05/22 18:13 Temp 37.1 Pulse 128 Resp 20 B/P (MAP) 150/108 (122) Pulse Ox 98 O2 Delivery Room Air Capillary Refill : Less Than 3 Seconds Height/Weight/BMI Height: 6'1.00" Weight: 226lbs. 1.0oz. 102.472658oq; 49.00 BMI Method:Stated General Appearance: mild distress, obese HEENT: PERRL/EOMI, pharynx normal Neck: full range of motion, normal inspection Respiratory: lungs clear, normal breath sounds, no respiratory distress, no accessory muscle use Cardiovascular: normal peripheral pulses, regular rate, rhythm, no edema, no murmur, tachycardia (125) Peripheral Pulses: 2+ Dorsalis Pedis (R), 2+ Left Dors-Pedis (L) Gastrointestinal: normal bowel sounds, non tender, soft, no organomegaly, other (Negative for McBurney's point tenderness, Rovsing sign, mesenteric signs or Gabriel sign.) Extremities: non-tender, normal inspection, normal capillary refill Neurologic/Psychiatric: alert, normal mood/affect, oriented x 3 Skin: normal color, warm/dry Progress/Results/Core Measures Results/Orders Lab Results Laboratory Tests Test 07/05/22 18:18 07/05/22 19:02 07/05/22 20:20 Range/Units White Blood Count 13.3 H 4.3-11.0 10^3/uL Red Blood Count 6.17 H 4.30-5.52 10^6/uL Hemoglobin 15.7 13.3-17.7 g/dL Hematocrit 49 40-54 % Mean Corpuscular Volume 79 L 80-99 fL Mean Corpuscular Hemoglobin 25 25-34 pg Mean Corpuscular Hemoglobin Concent 32 32-36 g/dL Red Cell Distribution Width 14.3 10.0-14.5 % Platelet Count 356 130-400 10^3/uL Mean Platelet Volume 10.5 9.0-12.2 fL Immature Granulocyte % (Auto) 0 % Neutrophils (%) (Auto) 71 42-75 % Lymphocytes (%) (Auto) 16 12-44 % Monocytes (%) (Auto) 5 0-12 % Eosinophils (%) (Auto) 7 0-10 % Basophils (%) (Auto) 1 0-10 % Neutrophils # (Auto) 9.4 H 1.8-7.8 10^3/uL Lymphocytes # (Auto) 2.1 1.0-4.0 10^3/uL Monocytes # (Auto) 0.6 0.0-1.0 10^3/uL Eosinophils # (Auto) 0.9 H 0.0-0.3 10^3/uL Basophils # (Auto) 0.1 0.0-0.1 10^3/uL Immature Granulocyte # (Auto) 0.1 0.0-0.1 10^3/uL Sodium Level 141 135-145 MMOL/L Potassium Level 3.9 3.6-5.0 MMOL/L Chloride Level 105 98-107 MMOL/L Carbon Dioxide Level 22 21-32 MMOL/L Anion Gap 14 5-14 MMOL/L Blood Urea Nitrogen 12 7-18 MG/DL Creatinine 0.87 0.60-1.30 MG/DL Estimat Glomerular Filtration Rate 124 BUN/Creatinine Ratio 14 Glucose Level 163 H 70-105 MG/DL Calcium Level 9.7 8.5-10.1 MG/DL Corrected Calcium 9.4 8.5-10.1 MG/DL Total Bilirubin 0.2 0.1-1.0 MG/DL Aspartate Amino Transf (AST/SGOT) 29 5-34 U/L Alanine Aminotransferase (ALT/SGPT) 64 H 0-55 U/L Alkaline Phosphatase 60 40-136 U/L Troponin I < 0.028 <0.028 NG/ML Total Protein 8.2 6.4-8.2 GM/DL Albumin 4.4 3.2-4.5 GM/DL Lipase 26 8-78 U/L Urine Color YELLOW Urine Clarity CLEAR Urine pH 6.0 5-9 Urine Specific Hooper 1.025 H 1.016-1.022 Urine Protein NEGATIVE NEGATIVE Urine Glucose (UA) NEGATIVE NEGATIVE Urine Ketones NEGATIVE NEGATIVE Urine Nitrite NEGATIVE NEGATIVE Urine Bilirubin NEGATIVE NEGATIVE Urine Urobilinogen 0.2 < = 1.0 MG/DL Urine Leukocyte Esterase NEGATIVE NEGATIVE Urine RBC (Auto) NEGATIVE NEGATIVE Urine RBC NONE /HPF Urine WBC NONE /HPF Urine Squamous Epithelial Cells NONE /HPF Urine Renal Epithelial Cells NONE /HPF Urine Crystals NONE /LPF Urine Bacteria NEGATIVE /HPF Urine Casts NONE /LPF Urine Mucus NEGATIVE /LPF Urine Culture Indicated NO Urine Opiates Screen NEGATIVE NEGATIVE Urine Oxycodone Screen NEGATIVE NEGATIVE Urine Methadone Screen NEGATIVE NEGATIVE Urine Propoxyphene Screen NEGATIVE NEGATIVE Urine Barbiturates Screen NEGATIVE NEGATIVE Ur Tricyclic Antidepressants Screen NEGATIVE NEGATIVE Urine Phencyclidine Screen NEGATIVE NEGATIVE Urine Amphetamines Screen NEGATIVE NEGATIVE Urine Methamphetamines Screen NEGATIVE NEGATIVE Urine Benzodiazepines Screen NEGATIVE NEGATIVE Urine Cocaine Screen NEGATIVE NEGATIVE Urine Cannabinoids Screen POSITIVE H NEGATIVE My Orders Orders - ALONA RICHMOND Ed Iv/Invasive Line Start (07/05/22 18:50) Ns Iv 500 Ml (Sodium Chloride 0.9%) (07/05/22 19:00) Ondansetron Injection (Zofran Injectio (07/05/22 19:00) Lidocaine 2% Viscous 15 Ml (Xylocaine Vi (07/05/22 19:00) Antacid Suspension (Mylanta Suspension (07/05/22 19:00) Pantoprazole Injection (Protonix Injecti (07/05/22 19:00) Cbc With Automated Diff (07/05/22 18:50) Comprehensive Metabolic Panel (07/05/22 18:50) Lipase (07/05/22 18:50) Ua Culture If Indicated (07/05/22 18:50) Troponin I Lauren (07/05/22 19:08) Ct Abdomen/Pelvis W (07/05/22 19:25) Ed Iv/Invasive Line Start (07/05/22 19:25) Lactated Ringers (Lr 1000 Ml Iv Solution (07/05/22 19:30) Ed Iv/Invasive Line Start (07/05/22 19:31) Ns Iv 1000 Ml (Sodium Chloride 0.9%) (07/05/22 19:45) Drug Screen Stat (Urine) (07/05/22 19:31) Iohexol Injection (Omnipaque 350 Mg/Ml 1 (07/05/22 20:30) Di Iv Start (Assessment) .IV start (07/05/22 20:27) Received Contrast (Hold Metformin- Contr (07/05/22 20:30) Medications Given in ED Current Medications Medications Dose Ordered Sig/Unruly Route Start Time Stop Time Status Last Admin Dose Admin Al Hydrox/Mg Hydrox/Simethicone 30 ml ONCE ONCE PO 07/05/22 19:00 07/05/22 19:01 DC 07/05/22 19:45 30 ML Iohexol 100 ml ONCE ONCE IV 07/05/22 20:30 07/05/22 20:31 DC 07/05/22 20:28 100 ML Lactated Ringer's 1,000 ml @ 0 mls/hr Q0M ONCE IV 07/05/22 19:30 07/05/22 19:31 DC 07/05/22 19:46 999 MLS/HR Lidocaine HCl 15 ml ONCE ONCE PO 07/05/22 19:00 07/05/22 19:01 DC 07/05/22 19:45 15 ML Ondansetron HCl 4 mg ONCE ONCE IVP 07/05/22 19:00 07/05/22 19:01 DC 07/05/22 19:46 4 MG Pantoprazole 40 mg ONCE ONCE IV 07/05/22 19:00 07/05/22 19:01 DC 07/05/22 19:46 40 MG Vital Signs/I&O 07/05/22 18:13 Temp 37.1 Pulse 128 Resp 20 B/P (MAP) 150/108 (122) Pulse Ox 98 O2 Delivery Room Air Blood Pressure Mean: 122 Progress Progress Note #1: Time: 19:30 Progress Note We will check some blood, urine and a CT of the abdomen/pelvis looking for gallbladder disease etc. We will check a lipase as well as urine drug screen. He is tachycardic, diaphoretic but afebrile. We will give him some fluids 1500 cc total and a GI cocktail. Progress Note #2: Time: 22:04 Progress Note He had a nonsurgical abdominal exam initially and still has a nonsurgical abdome n. He has no mesenteric signs. His vital signs have normalized his heart rate is now 75. His CT was unremarkable. His nausea has improved with IV Zofran. We will provide him with some Phenergan as the ODT nausea medicine is not helping. He is feeling much better, sitting up on his phone. His pain is under control his nausea is under control. Suspect a viral syndrome on top of history of IBS C/D. Will encourage follow-up with primary care if symptoms persist into next week. Diagnostic Imaging Diagonstic Imaging: CT Plain Films/CT/US/NM/MRI: abdomen, pelvis Comments [facility]. [place], [place] NAME: SABA HUBER [facility] REC#: [id number] PT STATUS: REG ER : 1995 PHYSICIAN: ALONA RICHMOND MD ADMIT DATE: 07/05/22/ER Signed Date of Exam:07/05/22 CT ABDOMEN/PELVIS W PROCEDURE: CT abdomen and pelvis with contrast. TECHNIQUE: Multiple contiguous axial images were obtained through the abdomen and pelvis after administration of intravenous contrast. Auto Exposure Controls were utilized during the CT exam to meet ALARA standards for radiation dose reduction. All CT scans use one or more of the following dose optimizing techniques: automated exposure control, MA and/or KvP adjustment based on patient size and exam type or iterative reconstruction. DATE: July 05, 2022. COMPARISON: None. INDICATION: 26-year-old male, abdominal pain, nausea, vomiting. FINDINGS: The visualized portions of the lung bases are clear. The heart is not enlarged. There is no pericardial effusion. There is diffuse fatty infiltration of the liver. The liver is not nodular in outer contour. There is no identified liver lesion. The main, right and left portal veins are patent. There is focal fatty sparing adjacent to the gallbladder fossa. The gallbladder is unremarkable. There is no identified biliary ductal dilation. Unremarkable appearance of the pancreas. There is a small accessory splenule. The spleen is not enlarged. The adrenal glands are unremarkable. There is some contrast in the urinary collecting systems. Unremarkable appearance of the renal parenchyma. There is no hydronephrosis. Urinary bladder is unremarkable. There is under distention of the mid sigmoid colon which is difficult to evaluate for wall thickening. Additional evaluation of the colon is unremarkable. The appendix is unremarkable and is well seen. There is no free intraperitoneal air. There is no drainable fluid collection. There is a circumaortic left renal vein. There is no identified abnormally enlarged lymph node in the abdomen or pelvis which meets CT size criteria for adenopathy. There is no additional questionable area of abnormal bowel wall thickening. There is no identified acute bony abnormality. IMPRESSION: CT abdomen and pelvis: 1. Appearance of the mid sigmoid colon most likely relates to underdistention although bowel wall thickening and a nonspecific colitis at this location is difficult to exclude although thought unlikely. Recommend correlation clinically. 2. Prominent diffuse fatty infiltration of the liver. 3. No definite acute abnormality in the abdomen or pelvis. Dictated by: Dictated on workstation # [id number] Dict: 07/05/222036 Trans: 07/05/222055 [facility] [id number] Interpreted by: MAYA ESCOBAR MD Electronically signed by: MAYA ESCOBAR MD 07/05/222055 Reviewed: Reviewed by Me Departure Impression Primary Impression: Gastroenteritis Disposition: HOME, SELF-CARE Condition: Stable Departure-Patient Inst. Decision time for Depature: 22:05 Referrals: [facility] (PCP/Family) Primary Care Physician ALEKSANDR POLANCO DO Patient Instructions: Viral Gastroenteritis Add. Discharge Instructions: Drink plenty of fluids. Gatorade or Powerade are encouraged. Ondansetron 1 or 2 tablets every 6 hours as needed for nausea and or vomiting. If this does not help then you can use the Phenergan 1 tablet every 6 hours. Phenergan will cause drowsiness and can be combined with Benadryl if it makes you feel restless. Follow-up with your primary care doctor if her symptoms do not improve in 5 to 10 days. Return to the ER if you are becoming dehydrated or having intractable symptoms despite the pills. Call the number on the top of the outpatient order form to schedule an ultrasound of your gallbladder prior to following up with either your primary care provider or Dr. Polanco for further work-up of your gallbladder. Avoid greasy, spicy foods especially dairy. All discharge instructions reviewed with patient and/or family. Voiced understanding. Scripts Promethazine HCl (Promethazine Tablet) 25 Mg Tablet 25 MG PO Q6H PRN for NAUSEA/VOMITING, #14 TAB 0 Refills Prov: ALONA RICHMOND 07/05/22 Ondansetron (Ondansetron Odt) 4 Mg Tab.rapdis 4-8 MG PO Q6H PRN for NAUSEA/VOMITING, #15 TAB 0 Refills Prov: ALONA RICHMOND 07/05/22 Copy Copies To 1: JASON DIEGO DO; ALEKSANDR POLANCO TITUS J Jul 05, 2022 18:56
[2022-07-05 18:58] LABS: BASOPHILS # (AUTO) 0.1 10^3/uL (0.0-0.1); BASOPHILS % (AUTO) 1 % (0-10); EOSINOPHILS # (AUTO) 0.9 10^3/uL (0.0-0.3); EOSINOPHILS % (AUTO) 7 % (0-10); HEMATOCRIT 49 % (40-54); HEMOGLOBIN 15.7 g/dL (13.3-17.7); LYMPHOCYTES # (AUTO) 2.1 10^3/uL (1.0-4.0); LYMPHOCYTES % (AUTO) 16 % (12-44); MEAN CORPUSCULAR HEMOGLOBIN 25 pg (25-34); MEAN CORPUSCULAR HGB CONC 32 g/dL (32-36); MEAN CORPUSCULAR VOLUME 79 fL (80-99); MEAN PLATELET VOLUME 10.5 fL (9.0-12.2); MONOCYTES # (AUTO) 0.6 10^3/uL (0.0-1.0); MONOCYTES % (AUTO) 5 % (0-12); NEUTROPHILS # (AUTO) 9.4 10^3/uL (1.8-7.8); NEUTROPHILS % (AUTO) 71 % (42-75); PLATELET COUNT 356 10^3/uL (130-400); WHITE BLOOD COUNT 13.3 10^3/uL (4.3-11.0)
[2022-07-05] MEDS ORDERED: PANTOPRAZOLE 40 MG (PROTONIX) VIAL IV ONE (19:00)
[2022-07-05] MEDS ORDERED: ONDANSETRON 4 MG/2 ML (SDV) Z0FRAN IVP ONE (19:00)
[2022-07-05] MEDS ORDERED: NS IV 500 ML 500 ML IV ONE (19:00)
[2022-07-05] MEDS ORDERED: ANTACID SUSP 30 ML UDC (MYLANTA) PO ONE (19:00)
[2022-07-05] MEDS ORDERED: LIDOCAINE 2% VISCOUS 15 ML UDC PO ONE (19:00)
[2022-07-05 19:09] LABS: BILIRUBIN,URINE NEGATIVE (NEGATIVE); CLARITY,URINE CLEAR; COLOR,URINE YELLOW; GLUCOSE, URINE (UA) NEGATIVE (NEGATIVE); KETONES,URINE NEGATIVE (NEGATIVE); LEUKOCYTE ESTERASE ,URINE NEGATIVE (NEGATIVE); NITRITE,URINE NEGATIVE (NEGATIVE); PROTEIN,URINE NEGATIVE (NEGATIVE)
[2022-07-05 19:12] LABS: ALBUMIN 4.4 GM/DL (3.2-4.5); BILIRUBIN,TOTAL 0.2 MG/DL (0.1-1.0); CALCIUM 9.7 MG/DL (8.5-10.1); CREATININE SERUM 0.87 MG/DL (0.60-1.30); POTASSIUM 3.9 MMOL/L (3.6-5.0); TOTAL PROTEIN 8.2 GM/DL (6.4-8.2)
[2022-07-05] MEDS ORDERED: ASPIRIN 81 MG CHEW (CHILDREN'S ASA) PO ONE (19:15)
[2022-07-05] MEDS ORDERED: ACETAMINOPHEN 500 MG TAB (TYLENOL) PO ONE (19:15)
[2022-07-05 19:18] LABS: BACTERIA,URINE NEGATIVE /HPF
[2022-07-05] MEDS ORDERED: LACTATED RINGERS 1,000 ML IV ONE (19:30)
[2022-07-05] MEDS ORDERED: NS IV 1000 ML 1,000 ML IV SCH (19:45)
[2022-07-05] MEDS ORDERED: HOLD METFORMIN - RECEIVED CONTRAST 20 ML VIAL IV SCH (20:30)
[2022-07-05] MEDS ORDERED: IOHEXOL 350 MG/ML 100 ML (OMNIPAQUE 350) VIAL IV ONE (20:30)
[2022-07-05 20:44] LABS: AMPHETAMINE SCREEN, URINE NEGATIVE (NEGATIVE); BARBITURATE SCREEN URINE NEGATIVE (NEGATIVE); BENZODIAZEPINES SCREEN URINE NEGATIVE (NEGATIVE); CANNABINOID SCREEN, URINE POSITIVE (NEGATIVE); COCAINE SCREEN URINE NEGATIVE (NEGATIVE); METHADONE STAT NEGATIVE (NEGATIVE); OPIATE SCREEN URINE NEGATIVE (NEGATIVE); OXYCODONE STAT NEGATIVE (NEGATIVE); PROPOXYPHENE STAT NEGATIVE (NEGATIVE); TRICYCLIC ANTIDEPRESSANTS SCRE NEGATIVE (NEGATIVE)
--- NOTE | 2022-07-05 20:51 | Diagnostic Imaging Report ---
PROCEDURE: CT abdomen and pelvis with contrast. TECHNIQUE: Multiple contiguous axial images were obtained through the abdomen and pelvis after administration of intravenous contrast. Auto Exposure Controls were utilized during the CT exam to meet ALARA standards for radiation dose reduction. All CT scans use one or more of the following dose optimizing techniques: automated exposure control, MA and/or KvP adjustment based on patient size and exam type or iterative reconstruction. DATE: July 05, 2022. COMPARISON: None. INDICATION: 26-year-old male, abdominal pain, nausea, vomiting. FINDINGS: The visualized portions of the lung bases are clear. The heart is not enlarged. There is no pericardial effusion. There is diffuse fatty infiltration of the liver. The liver is not nodular in outer contour. There is no identified liver lesion. The main, right and left portal veins are patent. There is focal fatty sparing adjacent to the gallbladder fossa. The gallbladder is unremarkable. There is no identified biliary ductal dilation. Unremarkable appearance of the pancreas. There is a small accessory splenule. The spleen is not enlarged. The adrenal glands are unremarkable. There is some contrast in the urinary collecting systems. Unremarkable appearance of the renal parenchyma. There is no hydronephrosis. Urinary bladder is unremarkable. There is under distention of the mid sigmoid colon which is difficult to evaluate for wall thickening. Additional evaluation of the colon is unremarkable. The appendix is unremarkable and is well seen. There is no free intraperitoneal air. There is no drainable fluid collection. There is a circumaortic left renal vein. There is no identified abnormally enlarged lymph node in the abdomen or pelvis which meets CT size criteria for adenopathy. There is no additional questionable area of abnormal bowel wall thickening. There is no identified acute bony abnormality. IMPRESSION: CT abdomen and pelvis: 1. Appearance of the mid sigmoid colon most likely relates to underdistention although bowel wall thickening and a nonspecific colitis at this location is difficult to exclude although thought unlikely. Recommend correlation clinically. 2. Prominent diffuse fatty infiltration of the liver. 3. No definite acute abnormality in the abdomen or pelvis. Dictated by: Dictated on workstation # [id number]
[2022-07-05] MEDS ORDERED: ONDA4TAB11 PO (22:13)
[2022-07-05] MEDS ORDERED: PROM25TA14 PO (22:13)
== END 2022-07-05 22:31 | disposition home or self-care (01) ==
LOC: EDUNIT# 18:02 → ER 18:05
DX: K52.9 Noninfective gastroenteritis and colitis, unspecified (principal); R00.0 Tachycardia, unspecified; E66.9 Obesity, unspecified; Z68.42 Body mass index [BMI] 45.0-49.9, adult; Z28.310 Unvaccinated for COVID-19
CPT/HCPCS: 36415; 74177; 80053; 80306; 81000; 83690; 84484; 85025

== ENCOUNTER 2022-08-19 14:33 | Emergency (ER) | payer OTHER ==
[~2022-08-19] VITALS: Ht 185.4 cm; Wt 166.9 kg
[~2022-08-19 14:33] MED LIST changes: +ONDA4TAB11 PO
[2022-08-19 15:25] LABS: BASOPHILS # (AUTO) 0.1 10^3/uL (0.0-0.1); BASOPHILS % (AUTO) 1 % (0-10); EOSINOPHILS # (AUTO) 0.4 10^3/uL (0.0-0.3); EOSINOPHILS % (AUTO) 5 % (0-10); HEMATOCRIT 46 % (40-54); HEMOGLOBIN 14.9 g/dL (13.3-17.7); LYMPHOCYTES # (AUTO) 2.1 X 10^3 (1.0-4.0); LYMPHOCYTES % (AUTO) 27 % (12-44); MEAN CORPUSCULAR HEMOGLOBIN 25 pg (25-34); MEAN CORPUSCULAR HGB CONC 32 g/dL (32-36); MEAN CORPUSCULAR VOLUME 77 fL (80-99); MONOCYTES # (AUTO) 0.4 X 10^3 (0.0-1.0); MONOCYTES % (AUTO) 5 % (0-12); NEUTROPHILS # (AUTO) 4.7 X 10^3 (1.8-7.8); NEUTROPHILS % (AUTO) 61 % (42-75); PLATELET COUNT 348 10^3/uL (130-400); WHITE BLOOD COUNT 7.7 10^3/uL (4.3-11.0)
[2022-08-19 15:35] LABS: CHLORIDE 105 MMOL/L (98-107); POTASSIUM 3.5 MMOL/L (3.6-5.0); SODIUM 138 MMOL/L (135-145)
[2022-08-19 15:36] LABS: ALBUMIN 4.3 GM/DL (3.2-4.5)
[2022-08-19 15:37] LABS: CALCIUM 9.1 MG/DL (8.5-10.1)
--- NOTE | 2022-08-19 15:37 | ED Psychosocial ---
General Chief Complaint: Psych/Social Disorder Stated Complaint: PSYCH EVAL Nursing Triage Note: PT AMB TO RM 8 WITH COMPLAINT OF PUKING ALL DAY, EVERYDAY. PT WAS ESCORTED TO ER WITH [facility]. PT STATES PEOPLE ARE TRYING TO KILL HIM. PT HAS DECLINE IN ACTIVITIES OF DAILY LIVING. PT STATES HE HAS USED METH RECENTLY. PT STATES THE HERBICIDE SPRAYER ARE MAKING FAKE DRUGS TO KILL ALL THE PEOPLE ON DRUGS AND MENTALLY ILL. Source: patient Exam Limitations: no limitations (THIERRY HUMPHREYS APRN) History of Present Illness Date Seen by Provider: Aug 19, 2022 Time Seen by Provider: 15:28 Initial Comments This is a 27-year-old male who was escorted to the emergency department by [facility]. Patient has been experiencing new onset acute psychosis, he had follow-up to see [facility] today and stated he was too tired to make visit. He did notify them over the phone that people are trying to kill him, made comments to [facility] that feces was smeared all over the place, he had broken shower and has been unable to shower for the past month. Concerns that if he notified his landlady she would evict him due to the status of his house. States that he does eat methamphetamine, and "ate some shit" 4 days ago. States that everyone calls meth "shit" and he typically eats his methamphetamine because "that is the best way to get high". He is very focused on law enforcement, stating that police are making fake drugs to kill all the people on drugs with mental health problems. He has had 2 prior suicidal attempts, 1 by overdose and one by hanging. Today he was driving in [place] and states he [place], he did speed up to about 60 mph but decided "not to". Has had intermittent thoughts of dying but does not have active plan at this time. States he does have constant abdominal and chest pain x3 months. He is unsure if this is related to his consumption of p.o. meth. (THIERRY HUMPHREYS APRN) Allergies and Home Medications Allergies Coded Allergies: No Known Drug Allergies (Unverified , 06/18/18) Patient Home Medication List Home Medication List Reviewed: Yes (THIERRY HUMPHREYS APRN) Albuterol Sulfate (Proair Hfa) 1 Puff Puff, 2 PUFF IH Q4H Prescribed by: Silver Wilson on 06/28/22 1226 Olanzapine (Zyprexa Zydis) 10 Mg Tab.rapdis, 10 MG PO DAILY Prescribed by: ASHLYN WINN on 08/02/19 1442 Ondansetron (Ondansetron Odt) 4 Mg Tab.rapdis, 4-8 MG PO Q6H PRN for NAUSEA/VOMITING Prescribed by: ALONA RICHMOND on 07/05/22 221 Promethazine HCl (Promethazine Tablet) 25 Mg Tablet, 25 MG PO Q6H PRN for NAUSEA/VOMITING Prescribed by: Silver Wilson on 06/28/22 1226 Promethazine HCl (Promethazine Tablet) 25 Mg Tablet, 25 MG PO Q6H PRN for NAUSEA/VOMITING Prescribed by: ALONA RICHMOND on 07/05/222212 Review of Systems Constitutional: see HPI Gastrointestinal: nausea (THIERRY HUMPHREYS APRN) Past Boqhdxx-Qijvgh-Fxhyjh Hx Patient Social History Tobacco Use?: Yes Tobacco type used: Cigarettes Smoking Status: Current Everyday Smoker Use of E-Cig and/or Vaping dev: No Use of E-Cig and/or Vaping Nate: Current Someday User Substance use?: Yes Substance type: Methamphetamine, Marijuana Alcohol Use?: No Pt feels they are or have been: No (THIERRY HUMPHREYS APRN) Immunizations Up To Date Tetanus Booster (TDap): Less than 5yrs PED Vaccines UTD: Yes (THIERRY HUMPHREYS APRN) Seasonal Allergies Seasonal Allergies: No (THIERRY HUMPHREYS APRN) Past Medical History Surgery/Hospitalization HX: "schizo-effictive" Surgeries: No Respiratory: No Cardiac: No Neurological: No Reproductive Disorders: No Genitourinary: No Gastrointestinal: No Musculoskeletal: No Endocrine: No HEENT: No Cancer: No Did You Recieve Any Treatments: No Psychosocial: Yes ADD/ADHD, Anxiety, Suicide Attempts, Bipolar, Depression Integumentary: No Blood Disorders: No Adverse Reaction/Blood Tranf: No (THIERRY HUMPHREYS APRN) Family Medical History Diabetes mellitus 19 FATHER Psychosocial problem 19 MOTHER (ANXIETY DEPRESSION BIPOLAR) Psychiatric Problems (THIERRY HUMPHREYS APRN) Physical Exam Vital Signs - First Documented 08/19/22 14:48 Pulse 104 Resp 20 B/P (MAP) 134/98 (110) Pulse Ox 98 O2 Delivery Room Air (KUSUM,BOB Almeida DO) Capillary Refill : Less Than 3 Seconds (THIERRY HUMPHREYS APRN) Height, Weight, BMI Height: 6'1.00" Weight: 226lbs. 1.0oz. [id number]; 48.00 BMI Method:Stated General Appearance: WD/WN, no apparent distress HEENT: PERRL/EOMI, normal ENT inspection, pharynx normal Neck: full range of motion, normal inspection Respiratory: lungs clear, normal breath sounds, no respiratory distress, no accessory muscle use Cardiovascular: regular rate, rhythm, no murmur Gastrointestinal: normal bowel sounds, soft, tenderness (generalized ) Extremities: normal range of motion, normal inspection Neurologic/Psychiatric: no motor/sensory deficits, alert, normal mood/affect, oriented x 3 Appearance/Memory: disheveled, impaired insight Behavior/Eye Contact: cooperative, good eye contact, compulsive Thoughts/Hallucinations: auditory hallucinations, obsessive, paranoid Skin: normal color, warm/dry (THIERRY HUMPHREYS APRN) Progress/Results/Core Measures Results/Orders Lab Results Laboratory Tests Test 08/19/22 15:18 08/19/22 16:05 Range/Units White Blood Count 7.7 4.3-11.0 10^3/uL Red Blood Count 5.98 H 4.30-5.52 10^6/uL Hemoglobin 14.9 13.3-17.7 g/dL Hematocrit 46 40-54 % Mean Corpuscular Volume 77 L 80-99 fL Mean Corpuscular Hemoglobin 25 25-34 pg Mean Corpuscular Hemoglobin Concent 32 32-36 g/dL Red Cell Distribution Width 13.7 10.0-14.5 % Platelet Count 348 130-400 10^3/uL Mean Platelet Volume 10.0 9.0-12.2 fL Immature Granulocyte % (Auto) 0 % Neutrophils (%) (Auto) 61 42-75 % Lymphocytes (%) (Auto) 27 12-44 % Monocytes (%) (Auto) 5 0-12 % Eosinophils (%) (Auto) 5 0-10 % Basophils (%) (Auto) 1 0-10 % Neutrophils # (Auto) 4.7 1.8-7.8 X 10^3 Lymphocytes # (Auto) 2.1 1.0-4.0 X 10^3 Monocytes # (Auto) 0.4 0.0-1.0 X 10^3 Eosinophils # (Auto) 0.4 H 0.0-0.3 10^3/uL Basophils # (Auto) 0.1 0.0-0.1 10^3/uL Immature Granulocyte # (Auto) 0.0 0.0-0.1 10^3/uL Sodium Level 138 135-145 MMOL/L Potassium Level 3.5 L 3.6-5.0 MMOL/L Chloride Level 105 98-107 MMOL/L Carbon Dioxide Level 24 21-32 MMOL/L Anion Gap 9 5-14 MMOL/L Blood Urea Nitrogen 10 7-18 MG/DL Creatinine 0.79 0.60-1.30 MG/DL Estimat Glomerular Filtration Rate 126 BUN/Creatinine Ratio 13 Glucose Level 103 70-105 MG/DL Calcium Level 9.1 8.5-10.1 MG/DL Corrected Calcium 8.9 8.5-10.1 MG/DL Total Bilirubin 0.4 0.1-1.0 MG/DL Aspartate Amino Transf (AST/SGOT) 60 H 5-34 U/L Alanine Aminotransferase (ALT/SGPT) 113 H 0-55 U/L Alkaline Phosphatase 52 40-136 U/L Total Protein 7.4 6.4-8.2 GM/DL Albumin 4.3 3.2-4.5 GM/DL TSH [place] Testing 0.61 0.35-4.94 UIU/ML Salicylates Level < 5.0 L 5.0-20.0 MG/DL Acetaminophen Level < 10 L 10-30 UG/ML Serum Alcohol < 10 <10 MG/DL Urine Color YELLOW Urine Clarity CLEAR Urine pH 6.0 5-9 Urine Specific [place] >=1.030 1.016-1.022 Urine Protein NEGATIVE NEGATIVE Urine Glucose (UA) NEGATIVE NEGATIVE Urine Ketones NEGATIVE NEGATIVE Urine Nitrite NEGATIVE NEGATIVE Urine Bilirubin 1+ H NEGATIVE Urine Urobilinogen 0.2 < = 1.0 MG/DL Urine Leukocyte Esterase NEGATIVE NEGATIVE Urine RBC (Auto) NEGATIVE NEGATIVE Urine RBC NONE /HPF Urine WBC NONE /HPF Urine Squamous Epithelial Cells RARE /HPF Urine Crystals NONE /LPF Urine Bacteria NEGATIVE /HPF Urine Casts NONE /LPF Urine Mucus NEGATIVE /LPF Urine Culture Indicated NO Urine Opiates Screen NEGATIVE NEGATIVE Urine Oxycodone Screen NEGATIVE NEGATIVE Urine Methadone Screen NEGATIVE NEGATIVE Urine Propoxyphene Screen NEGATIVE NEGATIVE Urine Barbiturates Screen NEGATIVE NEGATIVE Ur Tricyclic Antidepressants Screen NEGATIVE NEGATIVE Urine Phencyclidine Screen NEGATIVE NEGATIVE Urine Amphetamines Screen POSITIVE H NEGATIVE Urine Methamphetamines Screen POSITIVE H NEGATIVE Urine Benzodiazepines Screen NEGATIVE NEGATIVE Urine Cocaine Screen NEGATIVE NEGATIVE Urine Cannabinoids Screen POSITIVE H NEGATIVE SARS-CoV-2 RNA (RT-PCR) Not Detected Not Detecte (BOB ANTONIO DO) Medications Given in ED Current Medications Medications Dose Ordered Sig/Unruly Route Start Time Stop Time Status Last Admin Dose Admin Lorazepam 2 mg ONCE ONCE IM 08/19/22 17:00 08/19/22 17:01 DC 08/19/22 17:01 2 MG Olanzapine 5 mg ONCE ONCE PO 08/19/22 17:00 08/19/22 17:01 DC 08/19/22 17:01 5 MG Olanzapine 5 mg ONCE ONCE PO 08/19/22 18:30 08/19/22 18:31 DC 08/19/22 18:40 5 MG (KUSUMSHANIKAA Juan Pablo SCHMIDT) Vital Signs/I&O 08/19/22 14:48 Pulse 104 Resp 20 B/P (MAP) 134/98 (110) Pulse Ox 98 O2 Delivery Room Air (KUSUMSHANIKAA K DO) Blood Pressure Mean: 110 Progress Progress Note #1: Progress Note Patient examined no acute distress. He has no acute symptoms at this time. He did complain of a little bit of nausea, willing to trial Zofran. No emesis appreciated. His medical screen is unremarkable. Discussed with [facility] and will plan to continue with plan for inpatient treatment. Patient became very agitated in the emergency department, was demanding to be let go, yelling at staff that we are "kidnapping him". [facility] punching the wall [facility] and concerns for escalating behaviors. he is willing to take p.o. Zyprexa and Ativan. Given Zyprexa 5 mg ODT and Ativan 2 mg IM. Was able to redirect and calm shortly after receiving. Patient decided to rest while waiting decision for inpatient treatment. Continued observations, lights turned down, resting in exam room. Cassy Nichole with [facility] obtained acceptance of transfer to [facility] in [place]. Currently pending return call from receiving physician. Progress Note #2: Time: 20:40 Progress Note Reviewed case with Dr. Shafer at [facility], accepted transfer pending court order for involuntary hold. Called Cassy Nichole with [facility], states that order has been filed and will be signed in the morning. Called [facility] transfer line and updated that involuntary order is filed and will be signed in the a.m., Dr. Shafer declined transfer until petition is filed. Updated Cassy Nichole, plan at this time is to hold patient in the ED until petition filed and plan for police transfer tomorrow. Patient lying in bed, sleeping at 2100. (THIERRY HUMPHREYS ADVERTISING CLERK) Progress Note : Progress Note 2300--ASSUMED CARE AT END OF SHIFT. PT IS SLEEPING/RESTING QUIETLY. TRANSFER IS PENDING, WAITING FOR INVOLUNTARY ADMIT ORDER IS FILED WITH THE COURT TOMORROW. (BOB ANTONIO DO) Progress Note #1: Time: 09:00 Progress Note I assumed care of the patient at 06 100 shift change. He has been calm, cooperative but about 10 minutes ago started to get agitated requesting to go home. I advised him that he is on an involuntary hold that the paperwork was being assessed currently. I advised him that if he were to leave the emergency department that we would have to call the police. He starts cursing profusely and punches the door. I asked him if I could give him anything for his anxiousness and he is agreeable to this. Have ordered Zydis for him. He is currently agitated but agreeable to stay. Progress Note #2: Time: 10:30 Progress Note The patient continues to be slightly agitated however this did seemingly improved. He called the police on his own asking to speak with them about the validity of the involuntary hold. Patient arrived and spoke with the patient. Since that time he has been calm and cooperative. I was advised by the mental health counselors that the patient has to go before a juvenile court judge at 1:00. This will be a televisit and he can do it from his hospital room here. This will be coordinated by their office. This was required by the accepting facility prior to acceptance. Progress Note #3: Time: 14:09 Progress Note Patient has history of a tele-court appearance and the juvenile court judge affirmed the need for involuntary hold. [facility] in [place] has accepted transfer. Pending police transport at this time. (CHELA MONTES DO) Initial ECG Impression Date: Aug 19, 2022 Initial ECG Impression Time: 15:26 Initial ECG Rate: 95 Initial ECG Rhythm: Normal Sinus Initial ECG Intervals: Normal Initial ECG Impression: Normal Initial ECG Comparisson: Unchanged (THIERRY HUMPHREYS APRN) Transfer of Care Time: 22:49 Care transferred to: Dr. Antonio (THIERRY HUMPHREYS APRN) Departure Impression Primary Impression: Acute psychosis Additional Impression: Methamphetamine abuse Disposition: [facility]-TRM HOSP Condition: Stable Admissions Decision to Admit/Date: Aug 20, 2022 Time/Decision to Admit Time: 14:10 (CHELA MONTES DO) Transfer Transfer Reason: Exceeds level of care Method of Transfer: Law Enforcement (THIERRY HUMPHREYS APRN) Departure-Patient Inst. Referrals: [facility] (PCP/Family) Primary Care Physician THIERRY HUMPHREYS APRN Aug 19, 2022 15:37 BOB ANTONIO DO Aug 19, 2022 23:22 CHELA MONTES DO Aug 20, 2022 09:07
[2022-08-19 15:38] LABS: GLUCOSE 103 MG/DL (70-105)
[2022-08-19 15:39] LABS: CARBON DIOXIDE 24 MMOL/L (21-32); TOTAL PROTEIN 7.4 GM/DL (6.4-8.2)
[2022-08-19 15:40] LABS: BILIRUBIN,TOTAL 0.4 MG/DL (0.1-1.0)
[2022-08-19 15:42] LABS: ALKALINE PHOSPHATASE 52 U/L (40-136); CREATININE SERUM 0.79 MG/DL (0.60-1.30); GFR ESTIMATED 126
[2022-08-19 15:43] LABS: BUN/CREATININE RATIO 13
[2022-08-19 15:45] LABS: ALANINE AMINOTRANSFERASE 113 U/L (0-55); SALICYLATE < 5.0 MG/DL (5.0-20.0)
[2022-08-19 16:03] LABS: ACETAMINOPHEN < 10 UG/ML (10-30)
[2022-08-19 16:13] LABS: CLARITY,URINE CLEAR; COLOR,URINE YELLOW; GLUCOSE, URINE (UA) NEGATIVE (NEGATIVE); KETONES,URINE NEGATIVE (NEGATIVE); LEUKOCYTE ESTERASE ,URINE NEGATIVE (NEGATIVE); NITRITE,URINE NEGATIVE (NEGATIVE); PROTEIN,URINE NEGATIVE (NEGATIVE)
[2022-08-19 16:22] LABS: BILIRUBIN,URINE 1+ (NEGATIVE)
[2022-08-19 16:23] LABS: BACTERIA,URINE NEGATIVE /HPF; SQUAMOUS EPITHELIAL CELL,UR RARE /HPF
[2022-08-19 16:30] LABS: AMPHETAMINE SCREEN, URINE POSITIVE (NEGATIVE); BARBITURATE SCREEN URINE NEGATIVE (NEGATIVE); BENZODIAZEPINES SCREEN URINE NEGATIVE (NEGATIVE); CANNABINOID SCREEN, URINE POSITIVE (NEGATIVE); COCAINE SCREEN URINE NEGATIVE (NEGATIVE); METHADONE STAT NEGATIVE (NEGATIVE); OPIATE SCREEN URINE NEGATIVE (NEGATIVE); OXYCODONE STAT NEGATIVE (NEGATIVE); PROPOXYPHENE STAT NEGATIVE (NEGATIVE); TRICYCLIC ANTIDEPRESSANTS SCRE NEGATIVE (NEGATIVE)
[2022-08-19] MEDS ORDERED: LORazepam INJ 2 MG/ML (ATIVAN) VIAL IM ONE (17:00)
[2022-08-19] MEDS ORDERED: OLANZapine 5 MG ODT (ZyPREXA ZYDIS) PO ONE ×2 (17:00→18:30)
[2022-08-20] MEDS ORDERED: NICOTINE 21 MG (NICODERM) PATCH TD ONE (08:30)
[2022-08-20] MEDS ORDERED: OLANZapine 5 MG ODT (ZyPREXA ZYDIS) ONE (09:04)
[2022-08-20] MEDS ORDERED: OLANZapine 5 MG ODT (ZyPREXA ZYDIS) PO ONE (09:15)
[2022-08-20] MEDS ORDERED: clonazePAM 1 MG (KlonoPIN) TAB PO ONE (14:45)
[2022-08-20 15:04] VITALS: BP 127/74
== END 2022-08-20 15:04 | disposition short-term general hospital (02) ==
LOC: EDUNIT# 14:33 → ER 14:34
DX: F23 Brief psychotic disorder (principal); F15.10 Other stimulant abuse, uncomplicated; F60.0 Paranoid personality disorder; F17.210 Nicotine dependence, cigarettes, uncomplicated; Z20.822 Contact with and (suspected) exposure to COVID-19
CPT/HCPCS: 80053; 80306; 81000; 84443; 85025; 87636; 93005; 93041; 99284; G0480 ×3; 36415; 80320; 80329